=== PATIENT | female | born 1970 | race Caucasian/White ===

== ENCOUNTER 2019-08-07 15:09 | Emergency (ER) | payer BC ==
[2019-08-07] MEDS ORDERED: Sodium Chloride 0.9% 1000 ML 1,000 ML IV STA ×2 (15:28→16:49)
[2019-08-07] MEDS ORDERED: BABY ASPIRIN 81 MG CHEW PO ONE (15:28)
[2019-08-07] MEDS ORDERED: SUBLIMAZE 100 MCG/2 ML IV ONE ×2 (15:28→16:49)
[2019-08-07] MEDS ORDERED: BENADRYL 50 MG/ML IV ONE (15:28)
[2019-08-07] MEDS ORDERED: SUBLIMAZE 100 MCG/2 ML ONE ×2 (15:41→16:58)
[2019-08-07] MEDS ORDERED: BENADRYL 50 MG/ML ONE (15:41)
[2019-08-07] MEDS ORDERED: BABY ASPIRIN 81 MG CHEW ONE (15:41)
[2019-08-07] MEDS ORDERED: Sodium Chloride 0.9% 1000 ML 1,000 ML ONE ×2 (15:42→16:58)
--- NOTE | 2019-08-07 15:42 | ERPHSYRPT ---
- History of Present Illness Time Seen by Provider: 08/07/19 15:20 Historian: patient Exam Limitations: no limitations Patient Subjective Stated Complaint: Pt state "I have migraines and I had one last night and I thought it was just a headache, then my hands and arms started tingling and I got short of breath and now it feels like there is something laying on my chest." Triage Nursing Assessment: Pt presented to the ed and placed in room 7. Pt ambulates with an uprigth steady gait, able to speak in clear full sentences. Pt in no apparent respiratory distress. Physician History: Patient had chest pressure develop at 14:00 on 08/07/2019, 90 minutes prior to coming into the emergency department. Patient had a headache in the morning of 08/07/2019 that was consistent with typical migraines although this one was generalized with a throbbing head pain with nausea and photophobia. Timing/Duration: today Activities at Onset: none Quality: pressure Location: central Chest Pain Radiation: no radiation Severity of Pain-Max: moderate Severity of Pain-Current: moderate Modifying Factors: Improves With: nothing Associated Symptoms: nausea, shortness of breath (occurred before the chest pressure sensation, none currently), headache (headache was first), No vomiting , No palpitations, No heartburn, No abdominal pain, No cough, No hurts to breathe, No diaphoresis, No chills, No fever, No fatigue, No weakness, No swelling/lump in chest, No syncope, No rash, No dizziness, No edema, No back pain Prior Chest Pain/Cardiac Workup: no prior chest pain Nitro Today/Relief: no nitro taken today Aspirin Treatment Today: no aspirin today Allergies/Adverse Reactions: latex Allergy (Severe, Verified 08/07/19 15:33) Swelling morphine Allergy (Severe, Verified 08/07/19 15:33) seizures Home Medications: Amitriptyline HCl 50 mg PO HS 08/07/19 [History] Galcanezumab-Gnlm [Emgality] 120 mg SQ UD 08/07/19 [History] Levothyroxine Sodium [Synthroid] 25 mcg PO DAILY 08/07/19 [History] Metformin HCl 500 mg PO BID 08/07/19 [History] Omeprazole 40 mg PO DAILY 08/07/19 [History] Oxycodone / APAP 10/325 mg [Oxycodone-Acetaminophen 10-325] 1 each PO Q8H PRN PRN 08/07/19 [History] Propranolol HCl [Propranolol HCl ER] 120 mg PO HS 08/07/19 [History] Ranitidine HCl 300 mg PO HS 08/07/19 [History] Rivaroxaban [Xarelto] 20 mg PO HS 08/07/19 [History] Simvastatin 20 mg PO DAILY 08/07/19 [History] Zolpidem Tartrate [Zolpidem Tartrate ER] 12.5 mg PO HS 08/07/19 [History] Hx Tetanus, Diphtheria Vaccination/Date Given: Yes Hx Influenza Vaccination/Date Given: No Hx Pneumococcal Vaccination/Date Given: No Immunizations Up to Date: Yes - Review of Systems Constitutional: No Fever, No Chills Eyes: No Symptoms Ears, Nose, & Throat: No Symptoms Respiratory: No Cough, No Dyspnea Cardiac: No Chest Pain, No Edema, No Syncope Abdominal/Gastrointestinal: No Abdominal Pain, No Nausea, No Vomiting, No Diarrhea, No Hematemesis, No Hematochezia, No Melena Genitourinary Symptoms: No Dysuria, No Hematuria, No Flank Pain Musculoskeletal: No Back Pain, No Neck Pain Skin: No Rash Neurological: Headache, Parasthesia (bilateral upper extremities), No Dizziness , No Focal Weakness, No Paralysis, No Sensory Changes, No Tremors Psychological: No Symptoms Endocrine: No Symptoms Hematologic/Lymphatic: No Easy Bleeding, No Easy Bruising All Other Systems: Reviewed and Negative - Past Medical History Pertinent Past Medical History: Yes Neurological History: Migraines ENT History: No Pertinent History Cardiac History: High Cholesterol, Hypertension Respiratory History: No Pertinent History Endocrine Medical History: Hypothyroidism Musculoskeletal History: Arthritis GI Medical History: No Pertinent History History: No Pertinent History Psycho-Social History: No Pertinent History Female Reproductive Disorders: Endometriosis Other Medical History: factor 5 lieden, protien S - Past Surgical History Past Surgical History: Yes Other Surgical History: bebo. urethral. bilat knee - Social History Smoking Status: Former smoker Exposure to second hand smoke: No Drug Use: none Patient Lives Alone: No - Female History Hx Last Menstrual Period: ablasion Hx Now: No - Nursing Vital Signs Nursing Vital Signs: Initial Vital Signs Temperature 97.8 F 08/07/19 15:13 Pulse Rate 70 08/07/19 15:13 Respiratory Rate 18 08/07/19 15:13 Blood Pressure 125/87 08/07/19 15:13 O2 Sat by Pulse Oximetry 100 08/07/19 15:13 Pain Scale Pain Intensity 4 - Physical Exam General Appearance: no apparent distress, alert Eye Exam: PERRL/EOMI, eyes nml inspection Ears, Nose, Throat Exam: normal ENT inspection, moist mucous membranes Neck Exam: normal inspection, non-tender, supple, full range of motion Respiratory Exam: normal breath sounds, lungs clear, airway intact, No respiratory distress, No diminished breath sounds, No accessory muscle use, No crackles/rales, No rhonchi, No wheezing, No stridor Cardiovascular Exam: regular rate/rhythm, normal heart sounds, capillary refill <2 sec Gastrointestinal/Abdomen Exam: soft, No tenderness, No mass Back Exam: normal inspection, normal range of motion, No CVA tenderness, No vertebral tenderness Extremity Exam: normal inspection, normal range of motion, No calf tenderness, No hiram's sign, No swelling Neurologic Exam: alert, oriented x 3, cooperative, manager e commerce II-XII nml as tested, normal mood/affect, sensation nml, No motor deficits Skin Exam: normal color, warm, dry SpO2 Interpretation: normal SpO2: 100 O2 Delivery: Room Air - Course Nursing assessment & vital signs reviewed: Yes EKG Interpreted by Me: RATE (77), Sinus Rhythm, NORMAL AXIS, NORMAL INTERVALS, NORMAL QRS, NORMAL ST-T - Radiology Exams Chest X-ray Interpretation: Interpreted by me, Reviewed by me, No Pneumonia, No Pneumothorax, Nml Heart Size, No Infiltrates, Nml Mediastinum, Other (confirmed by radiologist) C-Spine X-ray Interpretation: Reviewed by me, Other (per radiologist's interpretation: 4 views of the cervical spine demonstrates cervical lordotic straightening and mild 4/moderate C5-C6 endplate spurring. No other bony, articular, or soft tissue abnormalities.) - CT Exams Head CT Interpretation: Negative, No/Intracranial Hemorrhag, Other (per radiologist' s interpretation: Compared to 01/08/2008 CT of the head: Stable remote right basal ganglia lacunar infarct. No new/acute findings.) Ordered Tests: Active Orders 24 hr Category Date Time Status Receiving Tank Operator STAT Care 08/07/19 15:29 Active EKG-ER Only STAT Care 08/07/19 15:28 Active IV Insertion STAT Care 08/07/19 15:28 Active Pulse Oximetry (ED) STAT Care 08/07/19 15:28 Active CERVICAL SPINE (2 OR 3 VIEW) Stat Exams 08/07/19 15:37 Completed CHEST 1 VIEW (PORTABLE) Stat Exams 08/07/19 15:29 Completed HEAD WITHOUT CONTRAST [CT] Stat Exams 08/07/19 16:49 Taken CBC W DIFF Stat Lab 08/07/19 15:28 Completed CK-Creatinine Phosphokinase Stat Lab 08/07/19 15:28 Completed CMP Stat Lab 08/07/19 15:28 Completed LIPASE Stat Lab 08/07/19 15:28 Completed MAGNESIUM Stat Lab 08/07/19 15:28 Completed NT PRO BNP Stat Lab 08/07/19 15:28 Completed PROTIME WITH INR Stat Lab 08/07/19 15:28 Completed PTT Stat Lab 08/07/19 15:28 Completed TROPONIN Q3H Lab 08/07/19 15:30 Completed TROPONIN Q3H Lab 08/07/19 19:00 Completed TROPONIN Q3H Lab 08/07/19 21:30 Ordered TROPONIN Q3H Lab 08/08/19 00:30 Ordered TROPONIN Q3H Lab 08/08/19 03:30 Ordered Urine Triage Profile Stat Lab 08/07/19 Completed Medication Summary Discontinued Medications Generic Name Dose Route Start Last Admin Trade Name Freq PRN Reason Stop Dose Admin Acetaminophen 975 mg 08/07/19 16:49 08/07/19 17:13 Tylenol 325 Mg PO 08/07/19 16:50 975 mg STAT ONE Administration Acetaminophen Confirm 08/07/19 16:59 Tylenol 325 Mg Administered 08/07/19 17:00 Dose 975 mg .ROUTE .STK-MED ONE Aspirin 324 mg 08/07/19 15:28 08/07/19 15:45 Baby Aspirin 81 Mg Chew PO 08/07/19 15:29 324 mg STAT ONE Administration Aspirin Confirm 08/07/19 15:41 Baby Aspirin 81 Mg Chew Administered 08/07/19 15:42 Dose 324 mg .ROUTE .STK-MED ONE Diphenhydramine HCl 25 mg 08/07/19 15:28 08/07/19 15:45 Benadryl 50 Mg/Ml IV 08/07/19 15:29 25 mg STAT ONE Administration Diphenhydramine HCl Confirm 08/07/19 15:41 Benadryl 50 Mg/Ml Administered 08/07/19 15:42 Dose 50 mg .ROUTE .STK-MED ONE Fentanyl Citrate 50 mcg 08/07/19 15:28 08/07/19 15:45 Sublimaze 100 Mcg/2 Ml IV 08/07/19 15:29 50 mcg STAT ONE Administration Fentanyl Citrate Confirm 08/07/19 15:41 Sublimaze 100 Mcg/2 Ml Administered 08/07/19 15:42 Dose 100 mcg .ROUTE .STK-MED ONE Fentanyl Citrate 50 mcg 08/07/19 16:49 08/07/19 17:13 Sublimaze 100 Mcg/2 Ml IV 08/07/19 16:50 50 mcg STAT ONE Administration Fentanyl Citrate Confirm 08/07/19 16:58 Sublimaze 100 Mcg/2 Ml Administered 08/07/19 16:59 Dose 100 mcg .ROUTE .STK-MED ONE Sodium Chloride 1,000 mls @ 999 mls/hr 08/07/19 15:28 08/07/19 16:47 Sodium Chloride 0.9% 1000 Ml IV 08/07/19 16:28 Infused .Q1H1M STA Infusion Sodium Chloride Confirm 08/07/19 15:42 Sodium Chloride 0.9% 1000 Ml Administered 08/07/19 15:43 Dose 1,000 mls @ ud .ROUTE .STK-MED ONE Sodium Chloride 1,000 mls @ 999 mls/hr 08/07/19 16:49 08/07/19 17:13 Sodium Chloride 0.9% 1000 Ml IV 08/07/19 17:49 999 mls/hr .Q1H1M STA Administration Sodium Chloride Confirm 08/07/19 16:58 Sodium Chloride 0.9% 1000 Ml Administered 08/07/19 16:59 Dose 1,000 mls @ ud .ROUTE .STK-MED ONE Ondansetron HCl 4 mg 08/07/19 16:49 08/07/19 17:12 Zofran 4 Mg/2 Ml Vial IV 08/07/19 16:50 4 mg STAT ONE Administration Ondansetron HCl Confirm 08/07/19 16:59 Zofran 4 Mg/2 Ml Vial Administered 08/07/19 17:00 Dose 4 mg .ROUTE .STK-MED ONE Potassium Chloride 40 meq 08/07/19 16:31 08/07/19 16:45 Klor Con 10 Meq PO 08/07/19 16:32 40 meq STAT ONE Administration Potassium Chloride Confirm 08/07/19 16:43 Klor Con 10 Meq Administered 08/07/19 16:44 Dose 40 meq PO .STK-MED ONE Lab/Rad Data: Laboratory Result Diagrams 08/07/19 15:28 08/07/19 15:28 Laboratory Results 08/07/19 08/07/19 08/07/19 Range/Units Unknown 19:00 15:30 WBC (4.0-10.5) K/mm3 RBC (4.1-5.4) M/mm3 Hgb (12.0-16.0) gm/dl Hct (35-47) % MCV (78-100) fl MCH (26-32) pg MCHC (32-36) g/dl RDW (11.5-14.0) % Plt Count (150-450) K/mm3 MPV (6-9.5) fl Gran % (36.0-66.0) % Eos # (Auto) (0-0.5) Absolute Lymphs (auto) (1.0-4.6) Absolute Monos (auto) (0.0-1.3) Lymphocytes % (24.0-44.0) % Monocytes % (0.0-12.0) % Eosinophils % (0.00-5.0) % Basophils % (0.0-0.4) % Absolute Granulocytes (1.4-6.9) Basophils # (0-0.4) PT (9.95-12.35) SECONDS INR (0.8-3.0) APTT (25.3-37.0) SECONDS Sodium (137-145) mmol/L Potassium (3.5-5.1) mmol/L Chloride (98-107) mmol/L Carbon Dioxide (22-30) mmol/L Anion Gap (5-15) MEQ/L BUN (7-17) mg/dL Creatinine (0.52-1.04) mg/dL Estimated GFR ML/MIN Glucose (74-106) mg/dL Calcium (8.4-10.2) mg/dL Magnesium (1.6-2.3) mg/dL Total Bilirubin (0.2-1.3) mg/dL AST (14-36) U/L ALT (0-35) U/L Alkaline Phosphatase (38-126) U/L Creatine Kinase (30-135) U/L Troponin I < 0.012 < 0.012 (0.000-0.034) ng/mL NT-Pro-B Natriuret Pep (0-450) pg/mL Serum Total Protein (6.3-8.2) g/dL Albumin (3.5-5.0) g/dL Lipase (23-300) U/L Urine Opiates Level NEGATIVE (NEGATIVE) Ur Methadone NEGATIVE (NEGATIVE) Urine Barbiturates NEGATIVE (NEGATIVE) Ur Phencyclidine (PCP) NEGATIVE (NEGATIVE) Urine Amphetamine NEGATIVE (NEGATIVE) U Benzodiazepine Level NEGATIVE (NEGATIVE) Urine Cocaine NEGATIVE (NEGATIVE) Urine Marijuana (THC) NEGATIVE (NEGATIVE) 08/07/19 08/07/19 08/07/19 Range/Units 15:28 15:28 15:28 WBC 6.8 (4.0-10.5) K/mm3 RBC 4.52 (4.1-5.4) M/mm3 Hgb 13.9 (12.0-16.0) gm/dl Hct 42.8 (35-47) % MCV 94.7 (78-100) fl MCH 30.8 (26-32) pg MCHC 32.5 (32-36) g/dl RDW 13.0 (11.5-14.0) % Plt Count 245 (150-450) K/mm3 MPV 9.9 H (6-9.5) fl Gran % 48.4 (36.0-66.0) % Eos # (Auto) 0.24 (0-0.5) Absolute Lymphs (auto) 2.53 (1.0-4.6) Absolute Monos (auto) 0.72 (0.0-1.3) Lymphocytes % 37.2 (24.0-44.0) % Monocytes % 10.6 (0.0-12.0) % Eosinophils % 3.5 (0.00-5.0) % Basophils % 0.3 (0.0-0.4) % Absolute Granulocytes 3.30 (1.4-6.9) Basophils # 0.02 (0-0.4) PT 12.7 H (9.95-12.35) SECONDS INR 1.12 (0.8-3.0) APTT 36.0 (25.3-37.0) SECONDS Sodium 141 (137-145) mmol/L Potassium 3.4 L (3.5-5.1) mmol/L Chloride 101 (98-107) mmol/L Carbon Dioxide 29 (22-30) mmol/L Anion Gap 13.5 (5-15) MEQ/L BUN 16 (7-17) mg/dL Creatinine 0.67 (0.52-1.04) mg/dL Estimated GFR > 60.0 ML/MIN Glucose 93 (74-106) mg/dL Calcium 10.0 (8.4-10.2) mg/dL Magnesium 1.8 (1.6-2.3) mg/dL Total Bilirubin 0.90 (0.2-1.3) mg/dL AST 33 (14-36) U/L ALT 28 (0-35) U/L Alkaline Phosphatase 67 (38-126) U/L Creatine Kinase 97 (30-135) U/L Troponin I (0.000-0.034) ng/mL NT-Pro-B Natriuret Pep 91.8 (0-450) pg/mL Serum Total Protein 7.2 (6.3-8.2) g/dL Albumin 4.0 (3.5-5.0) g/dL Lipase 119 (23-300) U/L Urine Opiates Level (NEGATIVE) Ur Methadone (NEGATIVE) Urine Barbiturates (NEGATIVE) Ur Phencyclidine (PCP) (NEGATIVE) Urine Amphetamine (NEGATIVE) U Benzodiazepine Level (NEGATIVE) Urine Cocaine (NEGATIVE) Urine Marijuana (THC) (NEGATIVE) - Progress Progress: improved, re-examined Air Movement: good Progress Note: 08/07/19 16:48 patient still has headache with no change after IV Fentanyl and Benadryl. Will check CT scan of the Head. 08/07/19 17:04 HEART score: 2; up to 1.7% risk of MACE in the next 30 days, low risk; will repeat troponin, and if negative on second, can discharge home in regards to cardiac and continue evaluation as an outpatient. 08/07/19 18:35 Headache has resolved. Patient has a supple neck. 08/07/19 20:26 HEART score 2 with two negative troponins. Low Probability of MACE and can be continued evaluation as an outpatient. Blood Culture(s) Obtained: No Antibiotics given: No Counseled pt/family regarding: lab results, diagnosis, need for follow-up, rad results - Departure Departure Disposition: Home Clinical Impression: Acute chest pain Migraine headache Qualifiers: Migraine type: unspecified Status migrainosus presence: without status migrainosus Intractability: not intractable Qualified Code(s): G43.909 - Migraine, unspecified, not intractable, without status migrainosus Condition: Good Critical Care Time: No Referrals: ABIGAIL HOLLAND [Primary Care Provider] - 08/08/19 Instructions: Chest Pain (DC), Migraine Headache (DC) Additional Instructions: Follow-up with your doctor in the morning of 08/07/2019. Return immediately to the emergency department if any worse headache, recurrent chest pain, shortness of breath, new fevers, new neck pain or any other concerning signs or symptoms that were not present at today's emergency department visit for immediate reevaluation in the emergency department. Forms: Work/School Release Form
[2019-08-07 16:03] LABS: BASOPHIL % 0.3 % (0.0-0.4); Basophil (Absolute #) 0.02 (0-0.4); Eosinophil % 3.5 % (0.00-5.0); Eosinophil (Absolute #) 0.24 (0-0.5); Granulocytes % 48.4 % (36.0-66.0); Hematocrit 42.8 % (35-47); Hemoglobin 13.9 gm/dl (12.0-16.0); Lymphocyte (Absolute #) 2.53 (1.0-4.6); Lymphocytes % 37.2 % (24.0-44.0); Mean Cell Volume 94.7 fl (78-100); Mean Corpuscular Hemoglobin 30.8 pg (26-32); Mean Corpuscular Hgb Concent. 32.5 g/dl (32-36); Mean Platelet Volume 9.9 fl (6-9.5); Monocyte (Absolute #) 0.72 (0.0-1.3); Monocytes % 10.6 % (0.0-12.0); Platelet Count 245 K/mm3 (150-450); Red Blood Count 4.52 M/mm3 (4.1-5.4); White Blood Count 6.8 K/mm3 (4.0-10.5)
[2019-08-07 16:10] LABS: INR 1.12 (0.8-3.0); PROTIME 12.7 SECONDS (9.95-12.35)
[2019-08-07 16:25] LABS: ALKALINE PHOSPHATASE 67 U/L (38-126); ANION GAP 13.5 MEQ/L (5-15); BLOOD UREA NITROGEN 16 mg/dL (7-17); CHLORIDE 101 mmol/L (98-107); CK-Creatinine Phosphokinase 97 U/L (30-135); Carbon Dioxide 29 mmol/L (22-30); Creatinine 1 0.67 mg/dL (0.52-1.04); Glucose 93 mg/dL (74-106); LIPASE 119 U/L (23-300); MAGNESIUM 1.8 mg/dL (1.6-2.3); NT PRO BNP 91.8 pg/mL (0-450); Potassium 3.4 mmol/L (3.5-5.1); SGOT/AST 33 U/L (14-36); SGPT/ALT 28 U/L (0-35); SODIUM 141 mmol/L (137-145); Total Protein 7.2 g/dL (6.3-8.2)
[2019-08-07] MEDS ORDERED: Klor Con 10 MEQ PO ONE ×2 (16:31→16:43)
--- NOTE | 2019-08-07 16:37 | XRAY ---
Indication: Pain between shoulder blades. Arm numbness. Comparison: November 13, 2018. Portable chest again demonstrates normal heart, lungs, and bony thorax.
--- NOTE | 2019-08-07 16:40 | XRAY ---
Indication: Pain between shoulder blades. Arm numbness. Comparison: None. 4 views of the cervical spine demonstrates cervical lordotic straightening and mild/moderate C5-C6 endplate spurring. No other bony, articular, or soft tissue abnormalities.
[2019-08-07] MEDS ORDERED: TYLENOL 325 MG PO ONE (16:49)
[2019-08-07] MEDS ORDERED: Zofran 4 MG/2 ML VIAL IV ONE (16:49)
[2019-08-07] MEDS ORDERED: TYLENOL 325 MG ONE (16:59)
[2019-08-07] MEDS ORDERED: Zofran 4 MG/2 ML VIAL ONE (16:59)
[2019-08-07 18:12] LABS: Amphetamine,Urine NEGATIVE (NEGATIVE); Barbiturate,Urine NEGATIVE (NEGATIVE); Benzodiazepine,Urine NEGATIVE (NEGATIVE); Cocaine,Urine NEGATIVE (NEGATIVE); Methadone,Urine NEGATIVE (NEGATIVE); Opiate,Urine NEGATIVE (NEGATIVE); PCP,Urine NEGATIVE (NEGATIVE); THC,Urine NEGATIVE (NEGATIVE)
[2019-08-07 20:06] VITALS: BP 120/75
[2019-08-07 20:18] VITALS: PULSE 67
[2019-08-07 20:29] VITALS: O2SAT 100
--- NOTE | 2019-08-08 08:38 | XRAY ---
Indication: Headache. Arm numbness and tingling. Multiple contiguous axial images obtained through the head without contrast. Comparison: January 08, 2008. Ventriculosulcal pattern appears symmetric. Stable remote right basal ganglia lacunar infarct. No acute intracranial hemorrhage, abnormal extra-axial fluid collection, or mass effect. Fourth ventricle is midline without hydrocephalus. Mercedes-white matter differentiation preserved. Bony calvarium intact. Visualized paranasal sinuses and mastoid air cells are clear. Impression: Stable remote right basal ganglia lacunar infarct. No new or acute intracranial abnormalities. CT DI 68.51
== END 2019-08-07 20:36 | disposition home or self-care (01) ==
LOC: ED 15:09
DX: G43.909 Migraine, unspecified, not intractable, without status migrainosus (principal); R07.9 Chest pain, unspecified
CPT/HCPCS: 36000; 36415; 70450; 71045; 72040; 80053; 80307; 82550; 83690; 83735; 83880; 84484; 85025; 85610; 85730; 93005; 93041; 94760; 96360; 96361; 96374; 96375; 96376; 99285; J1200; J2405; J3010; A9270-GY

== ENCOUNTER 2019-09-15 09:32 | Day surgery (SDC) | payer BC ==
[~2019-09-15 09:32] MED LIST: Lactated Ringers 1,000 ML IV ONE; Lactated Ringers 1,000 ML IV SCH
--- NOTE | 2019-09-15 09:32 | HP ---
DATE OF SURGERY: 09/15/2019 HISTORY OF PRESENT ILLNESS: The patient is a 49 year-old with upper esophagus choking worse the last couple of days. No prior upper endoscopy. I recommend upper esophageal evaluation to determine etiology. Mother had some problems apparently. PAST MEDICAL HISTORY: Migraines. Factor V Leiden. Protein-S deficiency. PAST SURGICAL HISTORY: Cholecystectomy. Left knee surgery. MEDICATIONS: Zolpidem, simvastatin, rivaroxaban, propranolol, oxycodone, levothyroxine, amitriptyline, promethazine, ergocalciferol, Emgality, tizanidine, Metformin. ALLERGIES: MORPHINE. LATEX. FAMILY HISTORY: Grandfather with prostate cancer. SOCIAL HISTORY: No smoking or alcohol abuse. REVIEW OF SYSTEMS: Fourteen systems reviewed. No chest pain or palpitations other systems negative or noncontributory as above and per preadmission questionnaire. PHYSICAL EXAMINATION: GENERAL: No acute distress. HEENT: Sclerae nonicteric. NECK: No JVD. CHEST: Equal excursion, nonlabored breathing. CVS: Regular rate and rhythm. ABDOMEN: Soft. No peritoneal signs. EXTREMITIES: No significant edema. NEURO: Alert, oriented, moving extremities symmetrically. No gross motor deficits noted. IMPRESSION: Dysphagia upper esophagus unclear etiology. I feel she will benefit from upper endoscopy possible biopsy, possible dilatation. Risks and benefits explained in detail including but not limited to bleeding or infection, risk of bowel injury or perforation possibly requiring open procedure, risk of missed or nondiagnosis or incomplete exam possibly requiring barium swallow, other studies or procedures. Possibility that dilatation may not improve her swallowing upper esophagus, if she has normal function may be neurological issue rather than mechanical. She understands if dilatation does improve her symptoms it may need to be repeated again down the road. General risk of anesthesia, deep venous thrombosis, pulmonary embolism, pneumonia, along with morbidity or mortality but not limited to. General risk of anesthesia or sedation. She understands and agrees to the planned procedure and will proceed with EGD possible biopsy, possible dilatation as an outpatient.
[2019-09-15] MEDS: Versed 2 MG/2 ML Injection IV ONE ×2 (10:31→10:52)
[2019-09-15] MEDS ORDERED: Ketamine HCl 50 MG/ML ONE (10:57)
[2019-09-15] MEDS ORDERED: DIPRIVAN 200 MG/20 ML IV ONE ×2 (10:57→11:11)
[2019-09-15] MEDS ORDERED: Zofran 4 MG/2 ML VIAL ONE (11:36)
[2019-09-15 12:43] VITALS: O2SAT 99
[2019-09-15 12:46] VITALS: BP 107/73; PULSE 71
--- NOTE | 2019-09-15 13:29 | OP ---
SURGERY DATE/TIME: 09/15/2019 1105 PREOPERATIVE DIAGNOSIS: Dysphagia. POSTOPERATIVE DIAGNOSES: 1) Mild gastritis. 2) Gastric polyps. 3) Symptomatic proximal esophageal narrowing and spasm requiring dilatation. PROCEDURES: 1) EGD with cold biopsy of the antrum to evaluate for Helicobacter pylori. 2) Cold biopsy of gastric polyp. 3) Cold biopsy distal esophagus area very short segment of distal gastroesophagitis versus normal variation of gastroesophageal junction. 4) Random cold biopsies of esophagus to evaluate for eosinophilic esophagitis. 5) Esophageal balloon dilatation proximal esophageal narrowing and spasm (size 20 balloon dilatator). SURGEON: Dr. Benjy Hernández. ANESTHESIA: MAC. ESTIMATED BLOOD LOSS: Minimal. INDICATIONS: As noted above. Risks and benefits explained in detail and not limited to and consent obtained. DESCRIPTION OF PROCEDURE AND FINDINGS: The patient is taken to the operating room. MAC anesthesia introduced. After official time out and no disagreement with planned procedure, bite block positioned. Video gastroscope passed down the oropharynx. There was some spasm and narrowing of proximal esophageal area where she is having symptoms. The scope was able to be just passed through here but it was felt that she would benefit from dilatation in this area given her degree of symptoms. There were no signs of any obvious mass or lesion to biopsy in this area, just narrowing and spasm. The scope was able to be passed down through the gastroesophageal junction, through the patent pylorus to the junction of the second and third portion of the duodenum. Proximal duodenum and duodenal bulb were grossly unremarkable. No signs of any ulcers or lesions. Scope pulled in the stomach. She had some mild gastritis. Cold biopsy taken to evaluate for Helicobacter pylori. Otherwise a little further back in the body of the stomach she had some gastric fundal gland appearing polyps. Cold biopsy taken for further evaluation. On retroflex the gastroesophageal junction is fairly snug against the scope. No signs of any large hiatal hernia. Scope is straightened. Gastroesophageal junction about 40 cm. Z-line was fairly crisp, maybe a little roughened edge. Cold biopsy taken to evaluate for short segment distal gastroesophagitis versus reactive changes versus normal variation of gastroesophageal junction, path pending. Good hemostasis noted. Otherwise she did have a little bit of saw tooth ridges and peristalsis, some cold biopsies taken to evaluate for eosinophilic esophagitis. Otherwise there were no signs of any obvious mucosal lesions. On withdrawal of the scope up to the symptomatic proximal esophageal narrowing. It was felt this warranted dilatation. The scope passed back down the stomach. A 20 balloon catheter carefully inserted under direct vision and pulled back up to the narrowed area and proximal esophagus gradually inflated for first stage 45 seconds, second stage 45 seconds and final stage size 20 balloon dilator was left inflated for a couple of minutes and decompressed. Patient was doing a little coughing during this time. The balloon catheter is carefully removed. The scope much more easily passed through this area down in the stomach and carefully withdrawn. Good hemostasis noted. Other than superficial abrasion in the dilated area there was no evidence of any full thickness issues or injury. The scope is withdrawn. The patient tolerated the procedure well. Findings discussed with the family out in the waiting area. Should she have recurrent symptoms or this fails to improve her swallowing could consider esophagogram or consider using larger dilator, a more stiffer and hard dilator. I will see her back in the office next week to go over the results.
== END 2019-09-15 12:51 | disposition home or self-care (01) ==
LOC: SDC 09:32
PROVIDERS: ATTEND Surgery
DX: K22.2 Esophageal obstruction (principal); K22.4 Dyskinesia of esophagus; K29.70 Gastritis, unspecified, without bleeding; K31.7 Polyp of stomach and duodenum
CPT/HCPCS: 84703; C1726; J2250; J2405; J2704

== ENCOUNTER 2019-12-08 14:16 | Emergency (ER) | payer BC ==
--- NOTE | 2019-12-08 14:21 | ERPHSYRPT ---
- History of Present Illness Time Seen by Provider: 12/08/19 14:20 Source: patient Exam Limitations: no limitations Physician History: 49 y/o white female exposed a month ago to her daughter who lives [place] of [facility]. no direct exposure to anyone with coronavirus dx. daughter was visiting and had flu like sx but sx resolved. pt was tested for influenza a and b last week and it was negative. pt was started on tamiflu. pt sx have been improving. however, family and friends convinced her pt should be evaluated. pt is on chronic oxycodone. pt sx include cough. no fevers, no n/v/d. Timing/Duration: week(s) (2) Cough Quality/Degree: mild, dry cough Possible Cause: no prior episodes Associated Symptoms: cough Allergies/Adverse Reactions: latex Allergy (Severe, Verified 12/08/19 14:32) Swelling morphine Allergy (Severe, Verified 12/08/19 14:32) seizures Home Medications: Metformin HCl 500 mg PO BID 08/07/19 [History] Omeprazole 40 mg PO DAILY 08/07/19 [History] Oxycodone / APAP 10/325 mg [Oxycodone-Acetaminophen 10-325] 1 each PO Q8H PRN PRN 08/07/19 [History] Rivaroxaban [Xarelto] 20 mg PO HS 08/07/19 [History] Simvastatin 20 mg PO DAILY 08/07/19 [History] Zolpidem Tartrate [Zolpidem Tartrate ER] 12.5 mg PO HS 08/07/19 [History] Ergocalciferol (Vitamin D2) [Vitamin D2] 50,000 unit PO WEEKLY 09/09/19 [History ] Promethazine HCl 25 mg [Phenergan 25 mg] 25 mg PO DAILY 09/09/19 [History] Tizanidine HCl 4 mg [Zanaflex 4 MG] 4 mg PO DAILY 09/09/19 [History] AMITRIPTYLINE HCL 50 mg Tab [AMITRIPTYLINE HCL 50 mg Tablet] 1 ea DAILY [History] Hx Tetanus, Diphtheria Vaccination/Date Given: Yes Hx Influenza Vaccination/Date Given: No Hx Pneumococcal Vaccination/Date Given: No - Review of Systems Constitutional: No Symptoms Eyes: No Symptoms Ears, Nose, & Throat: No Symptoms Respiratory: Cough Cardiac: No Symptoms Abdominal/Gastrointestinal: No Symptoms Genitourinary Symptoms: No Symptoms Musculoskeletal: No Symptoms Skin: No Symptoms Neurological: No Symptoms Psychological: No Symptoms Endocrine: No Symptoms Hematologic/Lymphatic: No Symptoms Immunological/Allergic: No Symptoms All Other Systems: Reviewed and Negative - Past Medical History Pertinent Past Medical History: Yes Neurological History: Migraines ENT History: No Pertinent History Cardiac History: Deep Vein Thrombosis, High Cholesterol, Hypertension Respiratory History: No Pertinent History Endocrine Medical History: Hypothyroidism Musculoskeletal History: Arthritis GI Medical History: No Pertinent History History: No Pertinent History Psycho-Social History: No Pertinent History Female Reproductive Disorders: Endometriosis Other Medical History: factor 5 lieden, protien S - Past Surgical History Past Surgical History: Yes Neuro Surgical History: No Pertinent History Cardiac: No Pertinent History Respiratory: No Pertinent History Gastrointestinal: Cholecystectomy Genitourinary: Other Musculoskeletal: Orthopedic Surgery Female Surgical History: Other Other Surgical History: bebo. urethral - expansion. bilat knee-endo w/ meniscus removed left, repair right. uterine ablation. endometriosis removal twice - Social History Smoking Status: Former smoker Exposure to second hand smoke: No Drug Use: none Patient Lives Alone: No - Nursing Vital Signs Nursing Vital Signs: Initial Vital Signs Temperature 98.6 F 12/08/19 14:22 Pulse Rate 75 12/08/19 14:22 Respiratory Rate 18 12/08/19 14:22 Blood Pressure 131/89 12/08/19 14:22 O2 Sat by Pulse Oximetry 99 12/08/19 14:22 Pain Scale Pain Intensity 4 - Physical Exam General Appearance: no apparent distress, alert, anxiety Eye Exam: PERRL/EOMI, eyes nml inspection Ears, Nose, Throat Exam: normal ENT inspection, moist mucous membranes Neck Exam: normal inspection, non-tender, supple, full range of motion Respiratory Exam: normal breath sounds, lungs clear, airway intact, No chest tenderness, No respiratory distress Cardiovascular Exam: regular rate/rhythm, normal heart sounds, normal peripheral pulses Gastrointestinal/Abdomen Exam: soft, normal bowel sounds, No tenderness Pelvic Exam: not done Rectal Exam: not done Back Exam: normal inspection, No CVA tenderness, No vertebral tenderness Extremity Exam: normal inspection, normal range of motion, pelvis stable Neurologic Exam: alert, oriented x 3, cooperative, striker off II-XII nml as tested Skin Exam: normal color, warm, dry Lymphatic Exam: No adenopathy SpO2 Interpretation: normal O2 Delivery: Room Air - Course Nursing assessment & vital signs reviewed: Yes Ordered Tests: Active Orders 24 hr Category Date Time Status CHEST 1 VIEW (PORTABLE) Stat Exams 12/08/19 14:32 Completed BLOOD CULTURE Stat Lab 12/08/19 14:52 Received [place] Screen Stat Lab 12/08/19 14:52 Completed UA W/RFX UR CULTURE Stat Lab 12/08/19 14:43 Completed Medication Summary Discontinued Medications Generic Name Dose Route Start Last Admin Trade Name Mak PRN Reason Stop Dose Admin Acetaminophen 1,000 mg 12/08/19 15:52 12/08/19 15:54 Tylenol Extra Strength 500 Mg PO 12/08/19 15:53 1,000 mg STAT STA Administration Acetaminophen Confirm 12/08/19 15:53 Tylenol Extra Strength 500 Mg Administered 12/08/19 15:54 Dose 1,000 mg .ROUTE .[employer] Lab/Rad Data: Laboratory Results 12/08/19 12/08/19 12/08/19 Range/Units 14:52 14:52 14:43 Urine Color STRAW (YELLOW) Urine Appearance CLEAR (CLEAR) Urine pH 6.0 (5-6) Ur Specific [place] 1.005 (1.005-1.025) Urine Protein NEGATIVE (Negative) Urine Ketones NEGATIVE (NEGATIVE) Urine Blood NEGATIVE (0-5) Moisés/ul Urine Nitrite NEGATIVE (NEGATIVE) Urine Bilirubin NEGATIVE (NEGATIVE) Urine Urobilinogen NEGATIVE (0-1) mg/dL Ur Leukocyte Esterase NEGATIVE (NEGATIVE) Urine WBC (Auto) 0-2 (0-5) /HPF Urine RBC (Auto) NONE (0-2) /HPF U Epithel Cells (Auto) RARE (FEW) /HPF Urine Bacteria (Auto) RARE (NEGATIVE) /HPF Urine Culture Reflexed NO (NO) Urine Glucose NEGATIVE (NEGATIVE) mg/dL Monoscreen NEGATIVE (Negative) Influenza Type A Ag NEGATIVE (NEGATIVE) Influenza Type B Ag NEGATIVE (NEGATIVE) RSV (PCR) NEGATIVE (Negative) Group A Strep Antibody NEGATIVE (NEGATIVE) - Progress Progress: improved Air Movement: good Progress Note: 12/08/19 15:21 [facility] contacted. they recommend no work up for ruby virus necessary. pt is very low risk. they will not authorize receipt of any lab , sputum, etc. 12/08/19 15:23 cxr-no acute process Blood Culture(s) Obtained: Yes Antibiotics given: No Counseled pt/family regarding: lab results, diagnosis, need for follow-up, rad results - Departure Departure Disposition: Home Clinical Impression: Bronchitis Condition: Stable Critical Care Time: No Referrals: ABIGAIL HOLLAND [Primary Care Provider] - Additional Instructions: drink plenty of fluids. take medications as prescribed. monitor your blood glucose closely next few days and treat accordingly Prescriptions: Benzonatate [Tessalon Perle] 200 mg PO TID #12 capsule Prednisone 10 mg [Deltasone 10 mg] 10 mg PO TID #6 tablet
--- NOTE | 2019-12-08 15:08 | XRAY ---
Indication: Fever and congestion. Comparison: August 07, 2019. Portable chest again demonstrates normal heart, lungs, and bony thorax.
[2019-12-08 15:09] LABS: Appearance CLEAR (CLEAR); Bacteria RARE /HPF (NEGATIVE); Bilirubin NEGATIVE (NEGATIVE); Blood NEGATIVE Ery/ul (0-5); Epithelial Cells RARE /HPF (FEW); Glucose NEGATIVE (NEGATIVE); Ketones NEGATIVE (NEGATIVE); Leukocyte Esterase NEGATIVE (NEGATIVE); Nitrite NEGATIVE (NEGATIVE); Protein,Urine Dip NEGATIVE (Negative); Specific Gravity 1.005 (1.005-1.025); Urobilinogen NEGATIVE mg/dL (0-1); WBC 0-2 /HPF (0-5)
[2019-12-08] MEDS ORDERED: TYLENOL EXTRA STRENGTH 500 MG PO STA (15:52)
[2019-12-08] MEDS ORDERED: TYLENOL EXTRA STRENGTH 500 MG ONE (15:53)
[2019-12-08 15:55] LABS: INFLUENZA A NEGATIVE (NEGATIVE); INFLUENZA B NEGATIVE (NEGATIVE); RESPIRATORY SYNCTIAL VIRUS NEGATIVE (Negative)
[2019-12-08 16:36] VITALS: BP 128/66; PULSE 87; O2SAT 98
== END 2019-12-08 16:37 | disposition home or self-care (01) ==
LOC: ED 14:16
DX: J40 Bronchitis, not specified as acute or chronic (principal)
CPT/HCPCS: 36415; 71045; 81001; 86308; 87040; 87631; 87651; 99284; A9270-GY

== ENCOUNTER 2020-05-28 10:06 | Emergency (ER) | payer BC ==
--- NOTE | 2020-05-28 10:44 | ERPHSYRPT ---
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 -Patient denies any trauma/fall -States that about a week ago her entire left lower extremity was swollen and painful, she did not have any fever/chest pain shortness of breath//red streaks on her legs -states that around last night the swelling went down, states she has some residual swelling in her calf systems and left lower extremity pain which is about4-5/10, intermittent dull ache which increases with ambulation, decreases with rest and elevation of legs, associated with swelling of legs. -Patient reports that last night for a few seconds she felt a sharp pain below her left shoulder blade, has not had a recurrence of that pain -Continues to deny chest pain or shortness of breath -Is currently on Xarelto-states she has been on it for several years Allergies/Adverse Reactions: latex Allergy (Severe, Verified 05/28/20 10:27) Swelling morphine Allergy (Severe, Verified 05/28/20 10:27) seizures Home Medications: Metformin HCl 500 mg PO BID 08/07/19 [History] Omeprazole 40 mg PO DAILY 08/07/19 [History] Oxycodone / APAP 10/325 mg [Oxycodone-Acetaminophen 10-325] 1 each PO Q8H PRN PRN 08/07/19 [History] Rivaroxaban [Xarelto] 20 mg PO HS 08/07/19 [History] Simvastatin 20 mg PO DAILY 08/07/19 [History] Zolpidem Tartrate [Zolpidem Tartrate ER] 12.5 mg PO HS 08/07/19 [History] Ergocalciferol (Vitamin D2) [Vitamin D2] 50,000 unit PO WEEKLY 09/09/19 [History] Promethazine HCl 25 mg [Phenergan 25 mg] 25 mg PO DAILY PRN PRN 09/09/19 [History] AMITRIPTYLINE HCL 50 mg Tab [AMITRIPTYLINE HCL 50 mg Tablet] 1 ea PO DAILY 12/08/19 [History] Prednisone 10 mg [Deltasone 10 mg] 10 mg PO TID PRN 05/28/20 [History] Hx Tetanus, Diphtheria Vaccination/Date Given: Yes Hx Influenza Vaccination/Date Given: No Hx Pneumococcal Vaccination/Date Given: No - Review of Systems Constitutional: No Fever, No Chills, No Fatigue, No Weakness Eyes: No Symptoms Ears, Nose, & Throat: No Symptoms Respiratory: No Symptoms Cardiac: No Symptoms Abdominal/Gastrointestinal: No Symptoms Genitourinary Symptoms: No Symptoms Musculoskeletal: Other (left LE pain) Skin: No Symptoms Neurological: No Symptoms Psychological: No Symptoms Endocrine: No Symptoms Hematologic/Lymphatic: No Symptoms Immunological/Allergic: No Symptoms All Other Systems: Reviewed and Negative - Past Medical History Pertinent Past Medical History: Yes Neurological History: Migraines ENT History: No Pertinent History Cardiac History: Deep Vein Thrombosis, High Cholesterol, Hypertension Respiratory History: No Pertinent History Endocrine Medical History: Hypothyroidism Musculoskeletal History: Arthritis GI Medical History: No Pertinent History History: No Pertinent History Psycho-Social History: No Pertinent History Female Reproductive Disorders: Endometriosis Other Medical History: factor 5 lieden, protien S - Past Surgical History Past Surgical History: Yes Neuro Surgical History: No Pertinent History Cardiac: No Pertinent History Respiratory: No Pertinent History Gastrointestinal: Cholecystectomy Genitourinary: Other Musculoskeletal: Orthopedic Surgery Female Surgical History: Other Other Surgical History: bebo. urethral - expansion. bilat knee-endo w/ meniscus removed left, repair right. uterine ablation. endometriosis removal twice - Social History Smoking Status: Former smoker Exposure to second hand smoke: No Drug Use: none Patient Lives Alone: No - Nursing Vital Signs Nursing Vital Signs: Initial Vital Signs Temperature 98.3 F 05/28/20 10:32 Pulse Rate 72 05/28/20 10:32 Respiratory Rate 18 05/28/20 10:32 Blood Pressure 119/73 05/28/20 10:32 O2 Sat by Pulse Oximetry 98 05/28/20 10:32 Pain Scale Pain Intensity 5 - Physical Exam General Appearance: no apparent distress Eyes, Ears, Nose, Throat Exam: normal ENT inspection Neck Exam: normal inspection Cardiovascular/Respiratory Exam: chest non-tender, normal breath sounds, regular rate/rhythm, heart sounds normal Gastrointestinal/Abdominal Exam: non-tender, soft, no organomegaly Back Exam: normal inspection, normal range of motion, No CVA tenderness Hips Exam: bilateral: non-tender, normal inspection, normal range of motion, no evidence of injury Legs Exam: right leg: non-tender, normal inspection (left LE has+ varicose veins, calf tenderness), left leg: pain (left calf pain), swelling (calf swelling), bilateral leg: normal range of motion, no evidence of injury Knees Exam: bilateral knee: non-tender, normal inspection, normal range of motion, no evidence of injury Ankle Exam: bilateral ankle: non-tender, normal inspection, normal range of jose on, no evidence of injury Foot Exam: bilateral foot: non-tender, normal inspection, normal range of motion, no evidence of injury DTR - Lower Extremities Exam: knee (R): 4+, knee (L): 4+, ankle (R): 4+, ankle (L): 4+ Neuro/Tendon Exam: normal sensation, normal motor functions, normal tendon functions, responds to pain, No motor deficit, No sensory deficit Mental Status Exam: alert, oriented x 3, cooperative Skin Exam: normal color, warm SpO2 Interpretation: normal O2 Delivery: Room Air Ordered Tests: Active Orders 24 hr Category Date Time Status Ultrasound Unilateral Extremities [VENOUS UNILAT/ Exams 05/28/20 11:03 Completed LIMITED EXTREMIT] [US] Stat D-DIMER QUANTITATIVE Stat Lab 05/28/20 10:38 Completed Lab/Rad Data: Laboratory Results 05/28/20 Range/Units 10:38 D-Dimer 229 (215-500) ng/mL - Progress Progress Note: 05/28/20 10:47 Is a 49-year-old patient with known history of DVT, history of factor V Leyden deficiency, protein s deficiency, currently on Xarelto presenting to the ED for evaluation of left lower extremity swelling and pain for the past 1 week. The swelling and pain has decreased last night -He was seen and evaluated in ED room 6 -Vital signs are stable on arrival -Bedside lower extremity ultrasound has been ordered -D-dimer pending 05/28/20 11:21 Lower extremity ultrasound with negative for DVT 05/28/20 12:02 D-dimer- WNL Discussed findings with patient - she is on xeralto- advised to continue - Advised limb elevation, rest, cold /warm compresses as needed. tylenol as needed for pain and f/u with pcp per appointment on sunday06/01/2020 - return to ED for new or worsening symptoms - Departure Departure Disposition: Home Clinical Impression: Leg pain, Left leg swelling Condition: Stable Critical Care Time: No Referrals: ABIGAIL HOLLAND [Primary Care Provider] - Additional Instructions: Discharge/Care Plan MINI RAJAN was seen on 05/28/20 in the Emergency Room. The patient was counseled regarding Diagnosis,Lab results, Imaging studies, need for follow up and when to return to the Emergency Room. Prescriptions given: Discharge Note I have spoken with the patient and/or caregivers. I have explained the patient's condition, diagnosis and treatment plan based on the information available to me at this time. I have answered the patient's and/or caregiver's questions and addressed any concerns. The patient and/or caregivers have as good understanding of the patient's diagnosis, condition and treatment plan as can be expected at this point. The vital signs have been stable. The patient's condition is stable and appropriate for discharge from the emergency department. The patient will pursue further outpatient evaluation with the primary care physician or other designated or consulting physician as outlined in the discharge instructions. The patient and/or caregivers are agreeable to this plan of care and follow-up instructions have been explained in detail. The patient and/or caregivers have received these instruction. The patient/and or caregivers are aware that any significant change in condition or worsening of symptoms should prompt an immediate return to this or the closest emergency department or call 911.
--- NOTE | 2020-05-28 11:18 | XRAY ---
Indication: Left calf pain. Two-dimensional sonogram and color Doppler imaging of the major venous vessels of the left leg was performed. Comparison: None No thrombus seen in the examined deep venous vessels of the left leg including greater saphenous vein. Veins demonstrate normal compressibility. Venous waveforms are normal with and without augmentation. Impression: Left leg negative for DVT.
[2020-05-28 11:47] VITALS: BP 92/57; PULSE 62; O2SAT 94
== END 2020-05-28 12:14 | disposition home or self-care (01) ==
LOC: ED 10:06
DX: M79.662 Pain in left lower leg (principal); M79.89 Other specified soft tissue disorders; Z86.718 Personal history of other venous thrombosis and embolism; Z79.899 Other long term (current) drug therapy; E78.00 Pure hypercholesterolemia, unspecified; I10 Essential (primary) hypertension; Z79.01 Long term (current) use of anticoagulants; D68.2 Hereditary deficiency of other clotting factors
CPT/HCPCS: 36415; 85379; 93971; 99283

== ENCOUNTER 2020-08-09 08:18 | Day surgery (SDC) | payer BC ==
--- NOTE | 2020-08-09 07:49 | HP ---
DATE OF SURGERY: 08/09/2020 HISTORY OF PRESENT ILLNESS: The patient is a 50 year old over the left neck area feels like solids get stuck. No problem with liquids. Prior dilatation a year ago helped. Minimal dysphagia. I felt she would benefit from upper endoscopy possible dilatation. PAST MEDICAL HISTORY: Hypothyroidism. Reflux. Hyperlipidemia. Diabetes. Hypertension. PAST SURGICAL HISTORY: Cholecystectomy. Endoscopy in the past with dilatation. Left knee surgery in the past. MEDICATIONS: Vitamin D2, Percocet, levothyroxine, hydrochlorothiazide, Metformin, omeprazole, Simvastatin, ALLERGIES: MORPHINE. LATEX. FAMILY HISTORY: Diabetes, stroke, heart disease, prostate cancer. SOCIAL HISTORY: Denies smoking. REVIEW OF SYSTEMS: Fourteen systems reviewed. Negative or noncontributory as above and per preadmission questionnaire. PHYSICAL EXAMINATION: GENERAL: No acute distress. HEENT: Sclerae nonicteric. NECK: No JVD. CHEST: Equal excursion, nonlabored breathing. CVS: Regular rate and rhythm. ABDOMEN: Soft. No peritoneal signs. EXTREMITIES: No significant edema. NEURO: Alert, oriented, moving extremities symmetrically. No gross motor deficits noted. PSYCH: Appropriate mood and affect. IMPRESSION: Dysphagia, need for EGD possible biopsy, possible dilatation. Risks and benefits explained in detail including but not limited to bleeding or infection, risk of bowel injury or perforation possibly requiring open procedure, risk of missed or nondiagnosis or incomplete exam possibly requiring barium swallow, other studies or procedures. General risk of anesthesia or sedation, risk of perforation possibly requiring open procedure, risk of ongoing morbidity/mortality, possibility that dilatation may not improve the swallowing, may be more of a functional problem or neurological problem. General risk of anesthesia, deep venous thrombosis, pulmonary embolism, pneumonia but not limited to. She agrees to the planned procedure, will proceed with EGD possible biopsy, possible dilatation as an outpatient.
[~2020-08-09 08:18] MED LIST changes: +DIPRIVAN 200 MG/20 ML IV ONE; +Ketamine HCl 50 MG/ML ONE; -Lactated Ringers 1,000 ML IV ONE; -Lactated Ringers 1,000 ML IV SCH
[2020-08-09] MEDS ORDERED: Lactated Ringers 1,000 ML IV SCH (08:30)
[2020-08-09] MEDS ORDERED: Lactated Ringers 1,000 ML IV ONE (09:05)
[2020-08-09] MEDS ORDERED: Versed 2 MG/2 ML Injection ONE (09:22)
[2020-08-09] MEDS ORDERED: Versed 2 MG/2 ML Injection IV ONE (09:23)
[2020-08-09] MEDS ORDERED: Zofran 4 MG/2 ML VIAL ONE (10:56)
[2020-08-09 12:03] VITALS: O2SAT 99
[2020-08-09 12:12] VITALS: BP 125/79; PULSE 67
--- NOTE | 2020-08-09 15:05 | OP ---
SURGERY DATE/TIME: 08/09/2020 1027 PREOPERATIVE DIAGNOSIS: Dysphagia. POSTOPERATIVE DIAGNOSES: 1) Minimal to mild gastritis. 2) Gastric polyp. 3) Mild distal esophageal erythema possible early esophagitis, path pending. 4) Proximal esophageal narrowing and spasm requiring dilatation, asymptomatic. PROCEDURES: 1) EGD with cold biopsy of antrum to evaluate for Helicobacter pylori. 2) Cold biopsy gastric polyp. 3) Cold biopsy distal esophagus to evaluate early esophagitis. 4) Proximal esophageal dilatation size 20 balloon dilator. SURGEON: Dr. Benjy Hernández. ANESTHESIA: MAC. ESTIMATED BLOOD LOSS: Minimal. INDICATIONS: As noted above. Risks and benefits explained in detail and not limited to and consent obtained. DESCRIPTION OF PROCEDURE AND FINDINGS: The patient is taken to the endoscopy room. MAC anesthesia introduced. After official time out and no disagreement with planned procedure, a bite block positioned. Video gastroscope passed down the oropharynx. The proximal esophagus had some narrowing and spasm. There was no obvious mass or lesion to biopsy in this area but she is having symptoms here. However, the scope could just pass through the area. It was felt she would benefit from a trial of dilatation given her symptoms in this area. The scope was passed down through the gastroesophageal junction about 38 cm through the patent pylorus to the junction of the second and third portion of the duodenum. In the third, second and first portion of the duodenum grossly unremarkable. In the stomach she had some mild gastric erythema consistent with some minimal to mild gastritis. Cold biopsy taken to evaluate for CLOtest, Helicobacter pylori. Good hemostasis noted. On retroflex there was gastric polyp. Cold biopsy polypectomy. Good hemostasis noted. This had more appearance of a benign fundal gland polyp, biopsy is taken. Good hemostasis noted. Gastroesophageal junction snug. No signs of any hiatal hernia. Scope straightened. Gastroesophageal junction about 38 cm. Z-line was fairly crisp. There was a little bit of erythematous esophagus. Cold biopsy taken to evaluate for early esophagitis and to evaluate for eosinophilic early esophagitis. Good hemostasis noted. Otherwise there were no signs of any obvious mucosal lesions on withdrawal of the scope up to the narrowed area in proximal esophagus. Again, there is no evidence of any mass or lesion to biopsy in this area. It was felt would benefit from dilatation given her symptoms. Scope passed back down. 20 balloon dilator carefully inserted, pulled back up through proximal esophageal narrowed and spasm area. It is carefully inflated first stage for 45 seconds, second stage 45 seconds and final stage size 20 balloon dilator for 2 minutes. The patient did a lot of coughing during this but the balloon was able to be inflated and left in position. The proximal esophagus appeared to be more widely patent and the balloon catheter withdrawn and passed off. The scope is passed back down through here. The proximal esophagus appeared to be more widely patent post-dilatation. It appeared to have no evidence of any full thickness issues or injury secondary to dilatation. The scope is passed back down in the stomach. Appeared to have good hemostasis in the polyp and gastric biopsy site. The scope is withdrawn. The patient tolerated the procedure well. There were no immediate complications. Findings discussed with the family/friend out in the waiting area.
== END 2020-08-09 11:55 | disposition home or self-care (01) ==
LOC: SDC 08:18
PROVIDERS: ATTEND Surgery
DX: K29.00 Acute gastritis without bleeding (principal); K22.2 Esophageal obstruction; K31.7 Polyp of stomach and duodenum; K20.9 Esophagitis, unspecified; K22.4 Dyskinesia of esophagus; E11.9 Type 2 diabetes mellitus without complications; E03.9 Hypothyroidism, unspecified; E78.5 Hyperlipidemia, unspecified; I10 Essential (primary) hypertension; Z79.899 Other long term (current) drug therapy
CPT/HCPCS: 82962; 87081; 88305; 88342; J2250; J2405; J2704

== ENCOUNTER 2021-08-17 19:56 | Emergency (ER) | payer BC ==
--- NOTE | 2021-08-17 20:05 | ERPHSYRPT ---
- History of Present Illness Time Seen by Provider: 08/17/21 20:05 Source: patient Exam Limitations: no limitations Physician History: This is a 51-year-old white female patient of Dr. Blair Brown who was tested positive for COVID-19 infection a month ago. Ever since that time, the patient has felt very poorly. She feels weak. [facility] she had a potassium level earlier today of 2.4. Patient has been on a diuretic for short period of time but was not placed on potassium supplementation. Patient denies diarrhea. She denies vomiting. She does have a history of protein S deficiency and factor V Leiden and is taking Xarelto because of this and history of DVTs. Patient also has a history of elevated cholesterol and hypertension. Patient also has a history of COPD. She is also hypothyroid. Severity: mild Associated Symptoms: weakness Allergies/Adverse Reactions: latex Allergy (Severe, Verified 08/17/21 20:16) Swelling morphine Allergy (Severe, Verified 08/17/21 20:16) seizures Home Medications: Omeprazole 40 mg PO DAILY 08/07/19 [History] Oxycodone / APAP 10/325 mg [Oxycodone-Acetaminophen 10-325] 1 each PO Q8H PRN PRN 08/07/19 [History] Simvastatin 20 mg PO DAILY 08/07/19 [History] Zolpidem Tartrate [Zolpidem Tartrate ER] 12.5 mg PO HS 08/07/19 [History] Ergocalciferol (Vitamin D2) [Vitamin D2] 50,000 unit PO WEEKLY 09/09/19 [History] Levothyroxine Sodium 50 Mcg [Synthroid 50 Mcg] 75 mcg PO DAILY 07/26/20 [History] Propranolol HCl [Propranolol HCl ER] 120 mg PO HS 07/26/20 [History] ondansetron HCL [Zofran] 8 mg PO DAILY 07/26/20 [History] Montelukast Sodium 10 mg [Singulair 10 MG] 10 mg PO DAILY 04/20/21 [History] Fluoxetine HCl 10 mg [Prozac 10 mg] 10 mg PO DAILY 06/02/21 [History] Hx Tetanus, Diphtheria Vaccination/Date Given: Yes Hx Influenza Vaccination/Date Given: No Hx Pneumococcal Vaccination/Date Given: No Travel Risk - International Travel Have you traveled outside of the country in past 3 weeks: No - Coronavirus Screening Are you exhibiting any of the following symptoms?: No Close contact with a COVID-19 positive Pt in past 14-21 Days: No - Review of Systems Constitutional: Weakness Eyes: No Symptoms Ears, Nose, & Throat: No Symptoms Respiratory: No Symptoms Cardiac: No Symptoms Abdominal/Gastrointestinal: No Symptoms Genitourinary Symptoms: No Symptoms Musculoskeletal: No Symptoms Skin: No Symptoms Neurological: No Symptoms Psychological: No Symptoms Endocrine: No Symptoms Hematologic/Lymphatic: No Symptoms Immunological/Allergic: No Symptoms All Other Systems: Reviewed and Negative - Past Medical History Pertinent Past Medical History: Yes Neurological History: Migraines ENT History: No Pertinent History Cardiac History: Deep Vein Thrombosis, High Cholesterol, Hypertension Respiratory History: COPD, Sleep Apnea Endocrine Medical History: Hypothyroidism Musculoskeletal History: Arthritis GI Medical History: No Pertinent History History: No Pertinent History Psycho-Social History: No Pertinent History Female Reproductive Disorders: Endometriosis Other Medical History: factor 5 lieden, protien S - Past Surgical History Past Surgical History: Yes Neuro Surgical History: No Pertinent History Cardiac: No Pertinent History Respiratory: No Pertinent History Gastrointestinal: Cholecystectomy Genitourinary: Other Musculoskeletal: Orthopedic Surgery Female Surgical History: Other Other Surgical History: bebo. urethral - expansion. bilat knee-endo w/ meniscus removed left, repair right. uterine ablation. endometriosis removal twice - Social History Smoking Status: Former smoker Exposure to second hand smoke: No Drug Use: none Patient Lives Alone: No - Nursing Vital Signs Nursing Vital Signs: Initial Vital Signs Temperature 99.0 F 08/17/21 19:57 Pulse Rate 74 08/17/21 19:57 Respiratory Rate 18 08/17/21 19:57 Blood Pressure 112/71 08/17/21 19:57 O2 Sat by Pulse Oximetry 96 08/17/21 19:57 Pain Scale Pain Intensity 7 - Physical Exam General Appearance: no apparent distress, alert, anxiety Eye Exam: PERRL/EOMI, eyes nml inspection Ears, Nose, Throat Exam: normal ENT inspection, moist mucous membranes Neck Exam: normal inspection, non-tender, supple, full range of motion Respiratory Exam: normal breath sounds, lungs clear, airway intact, No chest tenderness, No respiratory distress Cardiovascular Exam: regular rate/rhythm, normal heart sounds, normal peripheral pulses Gastrointestinal/Abdomen Exam: soft, normal bowel sounds, No tenderness Pelvic Exam: not done Rectal Exam: not done Back Exam: normal inspection, normal range of motion, No CVA tenderness, No vertebral tenderness Extremity Exam: normal inspection, normal range of motion, pelvis stable Neurologic Exam: alert, oriented x 3, cooperative, order runner II-XII nml as tested, normal mood/affect, nml cerebellar function, nml station & gait, sensation nml Skin Exam: normal color, warm, dry Lymphatic Exam: No adenopathy SpO2 Interpretation: normal O2 Delivery: Room Air - Course Nursing assessment & vital signs reviewed: Yes Ordered Tests: Active Orders 24 hr Category Date Time Status EKG-ER Only STAT Care 08/17/21 20:59 Active IV Insertion STAT Care 08/17/21 20:20 Active BMP Stat Lab 08/17/21 20:33 Completed MAGNESIUM Stat Lab 08/17/21 20:33 Completed T4 (Thyroxine) Stat Lab 08/17/21 20:30 Completed TSH [TSH, 3RD Generation] Stat Lab 08/17/21 20:30 Completed Medication Summary Generic Name Dose Route Start Last Admin Trade Name Freq PRN Reason Stop Dose Admin Potassium Chloride 20 meq in 100 mls @ 50 mls/hr 08/17/21 20:53 08/17/21 21:18 Potassium Chloride 20 Meq In Water 100ml IV 08/17/21 22:52 50 mls/hr STAT ONE Administration Discontinued Medications Generic Name Dose Route Start Last Admin Trade Name Freq PRN Reason Stop Dose Admin Sodium Chloride 500 mls @ 500 mls/hr 08/17/21 20:57 08/17/21 22:19 Sodium Chloride 0.9% 500 Ml IV 08/17/21 21:56 Infused .Q1H ONE Infusion Sodium Chloride Confirm 08/17/21 21:16 Sodium Chloride 0.9% 500 Ml Administered 08/17/21 21:17 Dose 500 mls @ ud IV .STK-MED ONE Potassium Chloride Confirm 08/17/21 21:16 Potassium Chloride 20 Meq In Water 100ml Administered 08/17/21 21:17 Dose 100 mls @ ud IV .STK-MED ONE Potassium Bicarbonate 50 meq 08/17/21 20:52 08/17/21 21:18 K-Lyte 25 Meq PO 08/17/21 20:53 50 meq STAT ONE Administration Potassium Bicarbonate Confirm 08/17/21 21:16 K-Lyte 25 Meq Administered 08/17/21 21:17 Dose 50 meq .ROUTE .STK-MED ONE Lab/Rad Data: Laboratory Result Diagrams 08/17/21 20:33 Laboratory Results 08/17/21 08/17/21 08/17/21 Range/Units 20:33 20:33 20:30 Sodium 138 (137-145) mmol/L Potassium 2.3 L* (3.5-5.1) mmol/L Chloride 94 L (98-107) mmol/L Carbon Dioxide 33 H (22-30) mmol/L Anion Gap 13.1 (5-15) MEQ/L BUN 16 (7-17) mg/dL Creatinine 0.75 (0.52-1.04) mg/dL Estimated GFR > 60.0 ML/MIN Glucose 181 H (74-106) mg/dL Calcium 9.6 (8.4-10.2) mg/dL Magnesium 1.7 (1.6-2.3) mg/dL Thyroxine (T4) 15.5 H (5.53-10.96) ug/dL TSH 3rd Generation 0.725 (0.47-4.68) mIU/L - Progress Progress: improved, re-examined Progress Note: 08/17/21 22:35 Medical decision making: Patient states she is feeling better. I reviewed that her labs. Patient, at the time of discharge will have received a total of approximately 75 mEq of potassium. We will send a prescription for potassium to her pharmacy that she can start taking twice a day. We will also have her follow-up on 08/19/2021 in our hospital lab to repeat a BMP and magnesium leve the results will be sent to Dr. Blair Brown, the patient's primary care physician. Counseled pt/family regarding: lab results, diagnosis, need for follow-up - Departure Departure Disposition: Home Clinical Impression: Hypokalemia, Hyperthyroidism Condition: Stable Critical Care Time: No Referrals: ABIGAIL FELDMAN [Primary Care Provider] - Additional Instructions: Take your medications as prescribed. Return to the hospital on 08/19/2021, to obtain repeat labs to assess your potassium and magnesium levels. Call Dr. Blair Brown's office Sunday morning to obtain your results and to receive further instructions. Prescriptions: Potassium Chloride 10 Meq Tab* [Klor Con 10 MEQ] 10 meq PO BID #10 tab
[2021-08-17 20:47] LABS: ANION GAP 13.1 MEQ/L (5-15); BLOOD UREA NITROGEN 16 mg/dL (7-17); CHLORIDE 94 mmol/L (98-107); Calcium 9.6 mg/dL (8.4-10.2); Carbon Dioxide 33 mmol/L (22-30); Creatinine 1 0.75 mg/dL (0.52-1.04); EST GLOMERULAR FILTRATION RATE > 60.0 ML/MIN; Glucose 181 mg/dL (74-106); SODIUM 138 mmol/L (137-145)
[2021-08-17 20:51] LABS: Potassium 2.3 mmol/L (3.5-5.1)
[2021-08-17] MEDS ORDERED: K-LYTE 25 MEQ PO ONE (20:52)
[2021-08-17] MEDS ORDERED: POTASSIUM CHLORIDE 20 mEq IN WATER 100ML 20 MEQ/100 ML BAG IV ONE (20:53)
[2021-08-17] MEDS ORDERED: Sodium Chloride 0.9% 500 ML 500 ML IV ONE ×2 (20:57→21:16)
[2021-08-17] MEDS ORDERED: K-LYTE 25 MEQ ONE (21:16)
[2021-08-17] MEDS ORDERED: POTASSIUM CHLORIDE 20 mEq IN WATER 100ML 100 ML IV ONE (21:16)
[2021-08-17 21:31] LABS: T4 (Thyroxine) 15.5 ug/dL (5.53-10.96); TSH, 3RD Generation 0.725 mIU/L (0.47-4.68)
[2021-08-17 23:15] VITALS: BP 110/68; PULSE 75; O2SAT 95
== END 2021-08-18 | disposition home or self-care (01) ==
LOC: ED 19:56
DX: E87.6 Hypokalemia (principal); E05.90 Thyrotoxicosis, unspecified without thyrotoxic crisis or storm; Z79.899 Other long term (current) drug therapy; Z79.01 Long term (current) use of anticoagulants; Z86.718 Personal history of other venous thrombosis and embolism; I10 Essential (primary) hypertension; E78.00 Pure hypercholesterolemia, unspecified; J44.9 Chronic obstructive pulmonary disease, unspecified
CPT/HCPCS: 36000; 36415; 80048; 83735; 84436; 84443; 93005; 99284; J3480; A9270-GY

== ENCOUNTER 2021-08-24 15:45 | Observation (INO) | payer BC ==
[2021-08-24 18:18] LABS: Hematocrit 43.8 % (35-47); Hemoglobin 13.8 gm/dl (12.0-16.0); Mean Cell Volume 89.9 fl (78-100); Mean Corpuscular Hemoglobin 28.3 pg (26-32); Mean Corpuscular Hgb Concent. 31.5 g/dl (32-36); Mean Platelet Volume 9.4 fl (7.5-11.0); Platelet Count 314 K/mm3 (150-450); Red Blood Count 4.87 M/mm3 (4.1-5.4); Red Cell Distribution Width 14.6 % (11.5-14.0); White Blood Count 14.8 K/mm3 (4.0-10.5)
[2021-08-24 18:43] LABS: Potassium 2.9 mmol/L (3.5-5.1)
[2021-08-24] MEDS: Sodium Chloride 0.9% W/ 20 mEq KCl/LITER 1,000 ML IV SCH (18:48)
[2021-08-24] MEDS: POTASSIUM CHLORIDE 20 mEq IN WATER 100ML 20 MEQ/100 ML BAG IV SCH ×2 (18:48→21:30)
[2021-08-24 20:17] LABS: Lymphocytes 54 % (24-44); Macrocytosis 1+; Monocyte 4 % (0.0-12.0); Neutrophils 42 % (36.0-66.0); Platelet Estimate NORMAL (NORMAL); Total Cells Counted 100
[2021-08-24] MEDS: Klor Con 10 MEQ PO SCH (21:30)
[2021-08-24] MEDS ORDERED: OXYCODONE-ACETAMINOPHEN 10-325 PO PRN (22:43)
[2021-08-24] MEDS ORDERED: PHENERGAN 25 MG PO PRN (22:52)
[2021-08-24] MEDS ORDERED: Ambien 10 MG ONE (23:18)
[2021-08-24] MEDS ORDERED: XARELTO 10 MG TABLET ONE (23:18)
[2021-08-24] MEDS ORDERED: Lexapro 10 MG ONE (23:19)
[2021-08-24] MEDS ORDERED: Pepcid 20 MG ONE (23:19)
[2021-08-25 00:03] LABS: Appearance CLEAR (CLEAR); Bilirubin NEGATIVE (NEGATIVE); Blood NEGATIVE Ery/ul (0-5); Epithelial Cells RARE /HPF (FEW); Glucose NEGATIVE (NEGATIVE); Ketones NEGATIVE (NEGATIVE); Leukocyte Esterase NEGATIVE (NEGATIVE); Mucus SLIGHT /HPF (NEGATIVE); Nitrite NEGATIVE (NEGATIVE); Protein,Urine Dip NEGATIVE (Negative); Specific Gravity 1.023 (1.005-1.025); Urobilinogen 2 mg/dL (0-1); WBC 0-2 /HPF (0-5)
[2021-08-25] MEDS: Sodium Chloride 0.9% W/ 20 mEq KCl/LITER 1,000 ML IV SCH ×2 (03:27→12:19)
[2021-08-25 03:40] LABS: BLOOD UREA NITROGEN 22 mg/dL (7-17); CHLORIDE 99 mmol/L (98-107); Calcium 8.1 mg/dL (8.4-10.2); Carbon Dioxide 29 mmol/L (22-30); Creatinine 1 0.68 mg/dL (0.52-1.04); EST GLOMERULAR FILTRATION RATE > 60.0 ML/MIN; Glucose 160 mg/dL (74-106); MAGNESIUM 2.1 mg/dL (1.6-2.3); SODIUM 137 mmol/L (137-145)
[2021-08-25] MEDS: POTASSIUM CHLORIDE 20 mEq IN WATER 100ML 20 MEQ/100 ML BAG IV SCH ×2 (04:34→08:05)
[2021-08-25] MEDS ORDERED: OXYCODONE-ACETAMINOPHEN 10-325 PO PRN (06:57)
--- NOTE | 2021-08-25 08:35 | PCM.HP.ADD ---
Addendum to History & Physical - History & Physical Addendum Addendum to History & Physical: This certifies that the History & Physical in the electronic chart reflects the current health status of the patient. If there are changes in the H&P these changes/exceptions are listed as follows.
--- NOTE | 2021-08-25 08:41 | PCM.DS ---
Discharge Summary Date of Admission: 08/24/21 17:08 Admitting Physician: ABIGAIL FELDMAN Primary Care Provider: ABIGAIL FELDMAN Allergies Allergies latex Allergy (Severe, Verified 08/17/21 20:16) Swelling morphine Allergy (Severe, Verified 08/17/21 20:16) seizures Hospital Summary - Hospital Course Hospital Course: Pt was seen in office yesterday, found to have potassium of 2.6 - this after ER visit for hypokalemia and increase in her potassium dosage. She was given a K- rider of 40mEq then potassium 3.0. In the midst of another K rider - if potassium up this afternoon, will send home on increased po potassium and have her f/u with lab tomorrow. If not resolving, will consult nephrology. - Vitals & Intake/Output Vital Signs: Vital Signs Temperature 97.7 F 08/25/21 07:20 Pulse Rate 69 08/25/21 07:20 Respiratory Rate 18 08/25/21 07:20 Blood Pressure 94/54 08/25/21 07:20 O2 Sat by Pulse Oximetry 95 08/25/21 07:20 Intake & Output: Intake & Output 08/22/21 08/23/21 08/24/21 08/25/21 11:59 11:59 11:59 11:59 Intake Total 2914 Output Total 600 Balance 2314 Weight 104.4 kg - Lab Result Diagrams: 08/24/21 18:05 08/25/21 03:15 Lab Results-Last 24 Hrs: Lab Results-Last 24 Hours 08/24/21 08/24/21 08/24/21 Range/Units 18:05 18:05 23:55 WBC 14.8 H (4.0-10.5) K/mm3 RBC 4.87 (4.1-5.4) M/mm3 Hgb 13.8 (12.0-16.0) gm/dl Hct 43.8 (35-47) % MCV 89.9 (78-100) fl MCH 28.3 (26-32) pg MCHC 31.5 L (32-36) g/dl RDW 14.6 H (11.5-14.0) % Plt Count 314 (150-450) K/mm3 MPV 9.4 (7.5-11.0) fl Segmented Neutrophils 42 (36.0-66.0) % Lymphocytes (Manual) 54 H (24-44) % Monocytes (Manual) 4 (0.0-12.0) % Platelet Estimate NORMAL (NORMAL) RBC Morphology ABNORMAL Macrocytosis 1+ Sodium (137-145) mmol/L Potassium 2.9 L* (3.5-5.1) mmol/L Chloride (98-107) mmol/L Carbon Dioxide (22-30) mmol/L Anion Gap (5-15) MEQ/L BUN (7-17) mg/dL Creatinine (0.52-1.04) mg/dL Estimated GFR ML/MIN Glucose (74-106) mg/dL Calcium (8.4-10.2) mg/dL Magnesium 2.0 (1.6-2.3) mg/dL Urine Color YELLOW (YELLOW) Urine Appearance CLEAR (CLEAR) Urine pH 6.0 (5-6) Ur Specific [place] 1.023 (1.005-1.025) Urine Protein NEGATIVE (Negative) Urine Ketones NEGATIVE (NEGATIVE) Urine Blood NEGATIVE (0-5) Moisés/ul Urine Nitrite NEGATIVE (NEGATIVE) Urine Bilirubin NEGATIVE (NEGATIVE) Urine Urobilinogen 2 (0-1) mg/dL Ur Leukocyte Esterase NEGATIVE (NEGATIVE) Urine WBC (Auto) 0-2 (0-5) /HPF Urine RBC (Auto) NONE (0-2) /HPF U Epithel Cells (Auto) RARE (FEW) /HPF Urine Bacteria (Auto) NONE (NEGATIVE) /HPF Urine Mucus (Auto) SLIGHT (NEGATIVE) /HPF Urine Culture Reflexed NO (NO) Urine Glucose NEGATIVE (NEGATIVE) mg/dL 08/25/21 Range/Units 03:15 WBC (4.0-10.5) K/mm3 RBC (4.1-5.4) M/mm3 Hgb (12.0-16.0) gm/dl Hct (35-47) % MCV (78-100) fl MCH (26-32) pg MCHC (32-36) g/dl RDW (11.5-14.0) % Plt Count (150-450) K/mm3 MPV (7.5-11.0) fl Segmented Neutrophils (36.0-66.0) % Lymphocytes (Manual) (24-44) % Monocytes (Manual) (0.0-12.0) % Platelet Estimate (NORMAL) RBC Morphology Macrocytosis Sodium 137 (137-145) mmol/L Potassium 3.0 L* (3.5-5.1) mmol/L Chloride 99 (98-107) mmol/L Carbon Dioxide 29 (22-30) mmol/L Anion Gap 11.0 (5-15) MEQ/L BUN 22 H (7-17) mg/dL Creatinine 0.68 (0.52-1.04) mg/dL Estimated GFR > 60.0 ML/MIN Glucose 160 H (74-106) mg/dL Calcium 8.1 L (8.4-10.2) mg/dL Magnesium 2.1 (1.6-2.3) mg/dL Urine Color (YELLOW) Urine Appearance (CLEAR) Urine pH (5-6) Ur Specific [place] (1.005-1.025) Urine Protein (Negative) Urine Ketones (NEGATIVE) Urine Blood (0-5) Moisés/ul Urine Nitrite (NEGATIVE) Urine Bilirubin (NEGATIVE) Urine Urobilinogen (0-1) mg/dL Ur Leukocyte Esterase (NEGATIVE) Urine WBC (Auto) (0-5) /HPF Urine RBC (Auto) (0-2) /HPF U Epithel Cells (Auto) (FEW) /HPF Urine Bacteria (Auto) (NEGATIVE) /HPF Urine Mucus (Auto) (NEGATIVE) /HPF Urine Culture Reflexed (NO) Urine Glucose (NEGATIVE) mg/dL Discharge Exam General Appearance: no apparent distress, alert Neurologic Exam: oriented x 3, cooperative Eye Exam: eyes nml inspection Ears, Nose, Throat Exam: moist mucous membranes Neck Exam: normal inspection, non-tender, No lymphadenopathy Respiratory Exam: normal breath sounds, lungs clear, No crackles/rales, No rhonchi, No wheezing Cardiovascular Exam: regular rate/rhythm, normal heart sounds, No murmur Gastrointestinal/Abdomen Exam: soft, normal bowel sounds, No tenderness, No distention, No mass, No guarding, No rebound Back Exam: normal inspection, No rash Extremity Exam: normal inspection, No pedal edema, No swelling Skin Exam: normal color, warm, dry, No rash Final Diagnosis/Problem List - Final Discharge Diagnosis/Problem (1) Hypokalemia Current Visit: No Status: Acute Assessment & Plan: On 2nd K-rider of 40 mEq. Recheck potassium. Mg is fine. Stopped chlorthalidone as it is potassium wasting. Will recheck post-potassium and send home if it is high enough. Recheck lab tomorrow. Code(s): E87.6 - HYPOKALEMIA - Discharge Disposition: Home, Self-Care Condition: Stable Prescriptions: No Action Oxycodone / APAP 10/325 mg [Oxycodone-Acetaminophen 10-325] 1 each PO Q8H PRN PRN PRN Reason: Pain Zolpidem Tartrate [Zolpidem Tartrate ER] 12.5 mg PO HS Simvastatin 20 mg PO DAILY Omeprazole 40 mg PO DAILY Ergocalciferol (Vitamin D2) [Vitamin D2] 50,000 unit PO WEEKLY Propranolol HCl [Propranolol HCl ER] 120 mg PO HS Levothyroxine Sodium 50 Mcg [Synthroid 50 Mcg] 75 mcg PO DAILY Rivaroxaban [Xarelto] 20 mg PO HS #0 Montelukast Sodium 10 mg [Singulair 10 MG] 10 mg PO DAILY Chlorthalidone 25 mg PO DAILY Escitalopram Oxalate 10 mg [Lexapro 10 MG] 10 mg PO HS Black Cohosh Root Extract [Black Cohosh] 40 mg PO DAILY Follow up with: ABIGAIL FELDMAN [Primary Care Provider] -
[2021-08-25] MEDS ORDERED: NON-FORMULARY ITEM PO SCH (10:00)
[2021-08-25] MEDS ORDERED: Singulair 10 MG PO SCH (10:00)
[2021-08-25] MEDS ORDERED: SYNTHROID 50 MCG PO SCH (10:00)
[2021-08-25] MEDS ORDERED: Protonix 40MG Tablet PO SCH (10:00)
[2021-08-25] MEDS ORDERED: SYNTHROID 75 MCG PO SCH (10:00)
[2021-08-25] MEDS ORDERED: NON-FORMULARY ITEM (Omeprazole [Omeprazole] 40 MG Capsule.Dr) PO SCH (10:00)
[2021-08-25] MEDS ORDERED: ZOCOR 20MG PO SCH (10:00)
[2021-08-25] MEDS: Klor Con 10 MEQ PO SCH (10:01)
[2021-08-25 11:42] VITALS: BP 106/60; PULSE 66; O2SAT 94
[2021-08-25] MEDS ORDERED: Lexapro 10 MG PO SCH ×2 (22:00)
[2021-08-25] MEDS ORDERED: Pepcid 20 MG PO SCH ×2 (22:00)
[2021-08-25] MEDS ORDERED: Ambien 10 MG PO SCH ×2 (22:00)
[2021-08-25] MEDS ORDERED: XARELTO 10 MG TABLET PO SCH ×2 (22:00)
[2021-08-25] MEDS ORDERED: PROPRANOLOL HCL 120 MG PO SCH (22:00)
== END 2021-08-25 14:34 | disposition home or self-care (01) ==
LOC: MED SURG 17:08
PROVIDERS: ADMIT Family Medicine; ATTEND Family Medicine
DX: E87.6 Hypokalemia (principal); R53.1 Weakness; Z79.899 Other long term (current) drug therapy
CPT/HCPCS: 36415; 80048; 81001; 83735; 84132; 85025; 93268; G0378; J3480; A9270-GY

== ENCOUNTER 2022-01-18 08:25 | Day surgery (SDC) | payer BC ==
[2022-01-18] MEDS ORDERED: Versed 2 MG/2 ML Injection ONE (09:14)
[2022-01-18] MEDS ORDERED: Depo-Medrol 40 MG/ML IM ONE (09:40)
[2022-01-18] MEDS ORDERED: LIDOCAINE HCL 2% 100 MG/5 ML IJ ONE (09:40)
[2022-01-18] MEDS ORDERED: Lactated Ringers 1,000 ML IV ONE (10:13)
[2022-01-18] MEDS ORDERED: DIPRIVAN 200 MG/20 ML IV ONE (10:17)
--- NOTE | 2022-01-18 11:25 | XRAY ---
Indication: Bilateral L4-S1 MBB. Intraoperative fluoroscopy provided for 35 seconds. Single digital spot image submitted for interpretation demonstrates posterior needle tips projecting over the expected left and right L4-S1 nerve roots. Correlate with intraoperative findings/report.
--- NOTE | 2022-01-18 12:31 | XRAY ---
35 seconds of fluoroscopy was used in surgery for a bilateral L4-S1 MBB.
== END 2022-01-18 10:50 | disposition home or self-care (01) ==
LOC: SDC-PAIN 08:25
PROVIDERS: ATTEND Psychiatry & Neurology Pain Medicine
DX: M47.816 Spondylosis without myelopathy or radiculopathy, lumbar region (principal); Z79.899 Other long term (current) drug therapy
CPT/HCPCS: 63685; 64493; 64494; 72020; 77002; 84703; J1030; J2250; J2704

== ENCOUNTER 2022-02-15 08:34 | Day surgery (SDC) | payer BC ==
[2022-02-15] MEDS ORDERED: Lactated Ringers 1,000 ML IV ONE (10:33)
[2022-02-15] MEDS ORDERED: Xylocaine-Mpf 2% 5 Ml Vial ONE (11:32)
[2022-02-15] MEDS ORDERED: DIPRIVAN 200 MG/20 ML IV ONE (11:32)
--- NOTE | 2022-02-15 12:38 | XRAY ---
Indication: Bilateral L4-S1 MBB. Intraoperative fluoroscopy provided for 21 seconds. Single digital spot image submitted for interpretation demonstrates posterior needle tips projecting over the expected left and right L4-S1 nerve roots. Correlate with intraoperative findings/report.
--- NOTE | 2022-02-15 14:06 | XRAY ---
21 seconds fluoroscopy in surgery for bilateral L4-S1 MBB.
== END 2022-02-15 12:02 | disposition home or self-care (01) ==
LOC: SDC-PAIN 08:34
PROVIDERS: ATTEND Psychiatry & Neurology Pain Medicine
DX: M47.816 Spondylosis without myelopathy or radiculopathy, lumbar region (principal); Z79.899 Other long term (current) drug therapy
CPT/HCPCS: 72020; 77002; 84703; J2704

== ENCOUNTER 2023-02-12 11:53 | Day surgery (SDC) | payer BC ==
--- NOTE | 2023-02-12 10:20 | HP ---
DATE OF SURGERY: 02/12/2023 HISTORY OF PRESENT ILLNESS: A 52-year-old with solid food getting stuck upper esophagus area may be a little more towards the left. Last upper endoscopy a couple years ago. Family history negative for esophageal problems. She had dilatation a couple of years ago. PAST MEDICAL HISTORY: Hypertension, chronic obstructive pulmonary disease, hypothyroidism, arthritis, hyperlipidemia, history of headaches, migraines and sinus infections in the past. Corrective lenses. PAST SURGICAL HISTORY: Knee arthroplasty. Endometrial ablation. Cholecystectomy. EGD with dilatation in the past and colonoscopy in the past. MEDICATIONS: Ergocalciferol, Topamax, potassium chloride, Xarelto, zolpidem, famotidine, escitalopram, propranolol, promethazine, oxycodone, spironolactone, simvastatin, montelukast, Euthyrox, Black Cohosh, potassium chloride. ALLERGIES: MORPHINE. LATEX. FAMILY HISTORY: Mother had Factor V. SOCIAL HISTORY: Former smoker. No alcohol use. REVIEW OF SYSTEMS: Fourteen systems reviewed. No chest pain or palpitations. Other systems negative or noncontributory as above and per preadmission questionnaire. PHYSICAL EXAMINATION: Weight 244. BMI 38.22. GENERAL: No acute distress. HEENT: Sclerae nonicteric. EOMI. Oropharynx moist mucous membranes. NECK: No JVD. CHEST: Equal excursion, nonlabored breathing. CVS: Regular rate and rhythm. ABDOMEN: Soft. No peritoneal signs. EXTREMITIES: No edema. No cyanosis. NEURO: Alert. PSYCH: Appropriate mood and affect. SKIN: Dry. IMPRESSION: Dysphagia in need of EGD possible biopsy possible dilatation. General risk of bleeding or infection, risk of bowel injury or perforation possibly requiring open procedure or transfer for stent placement, possibility of no improvement in swallowing possibly requiring other procedures, studies or referrals. Possible risk of no area to dilate, possible neurologic or functional problem that dilatation may not benefit. If dilatation is accomplished and does improve her swallowing, it may be repeated down the road. She understands and agrees with plan of EGD possible biopsy possible dilatation as an outpatient.
[2023-02-12] MEDS ORDERED: Lactated Ringers 1,000 ML IV SCH (12:30)
[2023-02-12] MEDS ORDERED: Versed 2 MG/2 ML Injection IV PRN (12:30)
[2023-02-12] MEDS ORDERED: Zofran 4 MG/2 ML VIAL IV STA (12:31)
[2023-02-12 13:01] VITALS: O2SAT 97
[2023-02-12] MEDS ORDERED: Xylocaine-Mpf 2% 5 Ml Vial ONE (14:07)
[2023-02-12] MEDS ORDERED: DIPRIVAN 200 MG/20 ML IV ONE (14:07)
[2023-02-12] MEDS ORDERED: Versed 2 MG/2 ML Injection ONE (14:08)
[2023-02-12 14:30] VITALS: BP 114/63; PULSE 67
--- NOTE | 2023-02-13 07:49 | OP ---
SURGERY DATE/TIME: 02/12/2023 1330 PREOPERATIVE DIAGNOSIS: History of dysphagia. POSTOPERATIVE DIAGNOSES: 1) Mild gastritis. 2) Gastric polyps. 3) Proximal esophageal narrowing and spasm. PROCEDURES: 1) EGD with cold biopsy to antrum to evaluate for Helicobacter pylori. 2) Cold biopsy gastric polyp gastric fundus. 3) Proximal esophageal dilatation (size 20 balloon dilator). SURGEON: Dr. Benjy Hernández. GANDY DANCER: Asha Mcknight, Medical Student III. ANESTHESIA: MAC. ESTIMATED BLOOD LOSS: Minimal. INDICATIONS: As noted above. Risks and benefits explained in detail and not limited to and consent was obtained. DESCRIPTION OF PROCEDURE AND FINDINGS: The patient is taken to the endoscopy room. MAC anesthesia introduced. After official time out and no disagreement with planned procedure, bite block positioned. Video gastroscope easily passed down the oropharynx to proximal esophagus where she was feeling food getting stuck. She had some spasm and narrowing. The scope was able to be just passed through here. There was no evidence of any mass or lesion to biopsy. The scope is passed through the patent gastroesophageal junction through the patent pylorus to the third portion of the duodenum. Third, second and first portion of the duodenum grossly unremarkable. Back in the stomach he had some gastric erythema, some mild gastritis. Cold biopsy taken to evaluate for Helicobacter pylori. Good hemostasis noted. On retroflex, the gastroesophageal junction fairly snug against the scope. No signs of any big hiatal hernia. The scope is straightened. She did have a gastric polyp in the fundus. Cold biopsy taken for further evaluation. Good hemostasis noted. The scope pulled back and the gastroesophageal junction was about 38 cm. The Z-line and gastroesophageal junction appeared to be crisp with no signs of any Villalta's, no signs of any erosions. The scope is then carefully withdrawn up the esophagus to the proximal narrowed area. Again no evidence of any masses or lesions to biopsy. It was felt that given her symptoms this warranted dilatation. Therefore the scope is passed back down in the stomach. A 20 balloon catheter carefully inserted into the stomach and pulled upward. A proximal esophageal narrowed area carefully inflated first stage 30 seconds, second stage 30 seconds, final stage size 20 balloon dilator inflated for 2 minutes. The balloon catheter is then released and withdrawn. The scope more easily passed through this area back down in the stomach and carefully withdrawn. Good hemostasis noted. There are no signs of any full thickness issues or injury secondary to dilatation.
== END 2023-02-12 14:45 | disposition home or self-care (01) ==
LOC: SDC 11:53
PROVIDERS: ATTEND Surgery
DX: K29.70 Gastritis, unspecified, without bleeding (principal); Z87.19 Personal history of other diseases of the digestive system; K31.7 Polyp of stomach and duodenum; K22.2 Esophageal obstruction
CPT/HCPCS: 82947; 88305; C1726; J2250; J2405; J2704

== ENCOUNTER 2023-03-22 11:06 | Emergency (ER) | payer BC ==
[2023-03-22] MEDS ORDERED: Sodium Chloride 0.9% 1000 ML 1,000 ML IV STA (11:45)
[2023-03-22] MEDS ORDERED: TORAdol 30 mg Injection IV ONE (11:45)
[2023-03-22] MEDS ORDERED: Zofran 4 MG/2 ML VIAL IV ONE (11:45)
[2023-03-22 11:48] LABS: Appearance Clear (Clear); Bacteria None Seen /HPF (None Seen); Bilirubin Negative (Negative); Blood Large (Negative); Epithelial Cells Moderate /HPF (None Seen); Glucose, Urine Negative (Negative); Hyaline Casts NONE SEEN /LPF (0-2); Ketones Negative (Negative); Leukocyte Esterase Trace (Negative); Nitrite Negative (Negative); Ph 5.5 (4.6-8.0); Protein,Urine Dip Negative (Negative); RBC 51-100 /HPF (0-5); Specific Gravity 1.015 (1.005-1.030); Urobilinogen 0.2 mg/dL (0.2)
[2023-03-22 11:50] LABS: ADD URINE CULTURE? YES (NO)
[2023-03-22] MEDS ORDERED: TORAdol 30 mg Injection ONE (11:56)
[2023-03-22] MEDS ORDERED: Sodium Chloride 0.9% 1000 ML 1,000 ML ONE (11:56)
[2023-03-22] MEDS ORDERED: Zofran 4 MG/2 ML VIAL ONE (11:56)
[2023-03-22 12:15] LABS: Absolute Neutrophil Ct (ANC) 4.99 x10^3/uL (1.4-6.9); BASOPHIL % 0.4 % (0.0-0.4); Basophil (Absolute #) 0.03 x10^3/uL (0-0.4); Eosinophil (Absolute #) 0.17 x10^3/uL (0-0.5); Hematocrit 41.3 % (35-47); Hemoglobin 12.7 g/dL (12.0-16.0); IMMATURE GRAN # 0.03 x10^3u/L (0.00-0.03); IMMATURE GRAN % 0.4 % (0.00-0.4); Lymphocyte (Absolute #) 2.38 x10^3/uL (1.0-4.6); Lymphocytes % 28.1 % (24.0-44.0); Mean Cell Volume 90.4 fL (78-100); Mean Corpuscular Hemoglobin 27.8 pg (26-32); Mean Corpuscular Hgb Concent. 30.8 g/dL (32-36); Mean Platelet Volume 9.7 fL (7.5-11.0); Monocyte (Absolute #) 0.88 x10^3/uL (0.0-1.3); Monocytes % 10.4 % (0.0-12.0); Neutrophil % 58.7 % (36.0-66.0); Platelet Count 230 x10^3/uL (150-450); Red Blood Count 4.57 x10^6/uL (4.1-5.4); Red Cell Distribution Width 15.1 % (11.5-14.0); White Blood Count 8.5 x10^3/uL (4.0-10.5)
[2023-03-22 12:32] LABS: ALBUMIN 3.9 g/dL (3.5-5.0); ALKALINE PHOSPHATASE 93 U/L (38-126); ANION GAP 13.7 MEQ/L (5-15); BLOOD UREA NITROGEN 16 mg/dL (7-17); CHLORIDE 109 mmol/L (98-107); Calcium 8.4 mg/dL (8.4-10.2); Carbon Dioxide 23 mmol/L (22-30); Creatinine 1 0.79 mg/dL (0.52-1.04); EST GLOMERULAR FILTRATION RATE > 60.0 ML/MIN; Glucose 85 mg/dL (74-106); LIPASE 477 U/L (23-300); Potassium 3.6 mmol/L (3.5-5.1); SGOT/AST 28 U/L (14-36); SGPT/ALT 25 U/L (0-35); SODIUM 142 mmol/L (137-145); Total Protein 7.1 g/dL (6.3-8.2)
[2023-03-22 12:38] VITALS: PULSE 61; O2SAT 98
--- NOTE | 2023-03-22 12:40 | XRAY ---
Indication: Bilateral flank pain. Hematuria. Nausea and vomiting. Multiple contiguous axial images obtained through the abdomen and pelvis without contrast. Comparison: None Lung bases clear of infiltrate and effusion. Heart not enlarged. Noncontrasted stomach and bowel loops appear nonobstructed with normal appendix. Previous cholecystectomy. Distal left ureter demonstrates 7 mm UVJ calculus. Proximal left ureter is slightly prominent along with mild hydronephrosis favors partial obstructive uropathy. Left lower kidney demonstrates additional punctate calculus. No free fluid/air. Remaining liver, pancreas, spleen, adrenal glands, kidneys, ureters, bladder, uterus, and aorta are unremarkable for noncontrast exam. Osseous structures intact. Impression: 1. 7 mm left UVJ calculus producing partial obstruction. Additional left renal punctate calculus. 2. Remaining CT abdomen/pelvis without contrast exam is negative.
[2023-03-22] MEDS ORDERED: DEMEROL 50 MG IV ONE (12:43)
[2023-03-22] MEDS ORDERED: Flomax 0.4 MG PO STA (12:43)
[2023-03-22] MEDS ORDERED: DEMEROL 50 MG ONE (12:51)
[2023-03-22] MEDS ORDERED: Flomax 0.4 MG ONE (12:52)
--- NOTE | 2023-03-22 13:58 | ERPHSYRPT ---
- History of Present Illness Time Seen by Provider: 03/22/23 11:20 Historian: patient Exam Limitations: no limitations Patient Subjective Stated Complaint: C/O Bilateral Flank pain. States Dr. Pinto thinks she might have kidney stones. Triage Nursing Assessment: Patient ambulated back to ER without difficulties. No SOB. She is alert and oriented. Abdomen is soft. Bowel sounds present. 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 Has associated nausea but no vomiting. Timing/Duration: yesterday, gradual onset, worse Activities at Onset: rest, sleep Quality: sharpness Abdominal Pain Onset Location: flank Pain Radiation: groin Severity of Pain-Max: severe Severity of Pain-Current: severe Modifying Factors: Worsens With: movement, palpation Associated Symptoms: nausea Previous symptoms: no prior history Allergies/Adverse Reactions: latex Allergy (Severe, Verified 03/22/23 11:39) Swelling morphine Allergy (Severe, Verified 03/22/23 11:39) seizures Home Medications: Omeprazole 40 mg PO DAILY 08/07/19 [History] Oxycodone / APAP 10/325 mg [Oxycodone-Acetaminophen 10-325] 1 each PO Q8H PRN PRN 08/07/19 [History] Montelukast Sodium 10 mg [Singulair 10 MG] 10 mg PO DAILY 04/20/21 [History] Escitalopram Oxalate [Lexapro] 10 mg PO HS 01/15/23 [History] Famotidine 40 mg PO HS 01/15/23 [History] Levothyroxine Sodium [Euthyrox] 75 mcg PO DAILY 01/15/23 [History] Promethazine HCl 25 mg [Phenergan 25 mg] 25 mg PO Q6H PRN PRN 01/15/23 [History] Propranolol HCl [Inderal ] 60 mg PO HS 01/15/23 [History] Spironolactone 25 mg [Aldactone 25 MG] 25 mg PO DAILY 01/15/23 [History] Topiramate 100 mg [Topamax 100 MG] 100 mg PO BID PRN 01/15/23 [History] Zolpidem Tartrate [Ambien Cr] 12.5 mg PO HS 01/15/23 [History] Rosuvastatin Calcium 1 tab PO DAILY 03/22/23 [History] Hx Tetanus, Diphtheria Vaccination/Date Given: Yes Hx Influenza Vaccination/Date Given: No Hx Pneumococcal Vaccination/Date Given: No Immunizations Up to Date: Yes Travel Risk - International Travel Have you traveled outside of the country in past 3 weeks: No - Coronavirus Screening Are you exhibiting any of the following symptoms?: Yes Symptoms: Vomiting/Diarrhea Close contact with a COVID-19 positive Pt in past 14-21 Days: No - Vaccine Status Have you recieved a Covid-19 vaccination: No - Review of Systems Constitutional: No Symptoms Eyes: No Symptoms Ears, Nose, & Throat: No Symptoms Respiratory: No Symptoms Cardiac: No Symptoms Abdominal/Gastrointestinal: Abdominal Pain, Nausea Genitourinary Symptoms: Hematuria, Flank Pain Musculoskeletal: No Symptoms Skin: No Symptoms Neurological: No Symptoms Endocrine: No Symptoms - Past Medical History Pertinent Past Medical History: Yes Neurological History: Migraines ENT History: No Pertinent History Cardiac History: Deep Vein Thrombosis, High Cholesterol, Hypertension Respiratory History: COPD, Sleep Apnea Endocrine Medical History: Hypothyroidism Musculoskeletal History: Arthritis GI Medical History: Pancreatitis History: No Pertinent History Psycho-Social History: No Pertinent History Female Reproductive Disorders: Endometriosis Other Medical History: factor 5 lieden, protien S, COVID -19 07-23-21 - Past Surgical History Past Surgical History: Yes Neuro Surgical History: No Pertinent History Cardiac: No Pertinent History Respiratory: No Pertinent History Gastrointestinal: Cholecystectomy Genitourinary: Other Musculoskeletal: Orthopedic Surgery Female Surgical History: Other Other Surgical History: urethral - expansion. bilat knee-endo w/ meniscus removed left, repair right. uterine ablation. endometriosis removal twice - Social History Smoking Status: Never smoker How long have you smoked: 8 yrs Exposure to second hand smoke: No Drug Use: none Patient Lives Alone: No () - Nursing Vital Signs Nursing Vital Signs: Initial Vital Signs Temperature 98.7 F 03/22/23 11:06 Pulse Rate 66 03/22/23 11:06 Respiratory Rate 18 03/22/23 11:06 Blood Pressure 104/58 03/22/23 11:06 O2 Sat by Pulse Oximetry 98 03/22/23 11:06 Pain Scale Pain Intensity 6 - Physical Exam General Appearance: no apparent distress, alert Eye Exam: PERRL/EOMI Ears, Nose, Throat Exam: normal ENT inspection Neck Exam: normal inspection, full range of motion Respiratory Exam: normal breath sounds, lungs clear Cardiovascular Exam: regular rate/rhythm, normal heart sounds Gastrointestinal/Abdomen Exam: soft, normal bowel sounds, tenderness (Left lower quadrant), guarding Back Exam: normal inspection, normal range of motion, CVA tenderness (Left) Extremity Exam: normal inspection, normal range of motion Neurologic Exam: alert, oriented x 3, cooperative Skin Exam: normal color SpO2 Interpretation: normal SpO2: 98 O2 Delivery: Room Air Ordered Tests: Active Orders 24 hr Category Date Time Status IV Insertion STAT Care 03/22/23 11:45 Active ABDOMEN AND PELVIS W/0 CONTRAS [CT] Stat Exams 03/22/23 11:46 Completed CBC W DIFF Stat Lab 03/22/23 12:01 Completed CMP Stat Lab 03/22/23 12:01 Completed CULTURE,URINE Stat Lab 03/22/23 11:25 Received LIPASE Stat Lab 03/22/23 12:01 Completed UA W/RFX UR CULTURE Stat Lab 03/22/23 11:25 Completed Medication Summary Discontinued Medications Generic Name Dose Route Start Last Admin Trade Name Freq PRN Reason Stop Dose Admin Sodium Chloride 1,000 mls @ 999 mls/hr 03/22/23 11:45 03/22/23 13:07 Sodium Chloride 0.9% 1000 Ml IV 03/22/23 12:45 Infused .Q1H1M STA Infusion Sodium Chloride Confirm 03/22/23 11:56 Sodium Chloride 0.9% 1000 Ml Administered 03/22/23 11:57 Dose 1,000 mls @ ud .ROUTE .STK-MED ONE Ketorolac Tromethamine 30 mg 03/22/23 11:45 03/22/23 11:59 Ketorolac Tromethamine 30 Mg/Ml Inj IV 03/22/23 11:46 30 mg STAT ONE Administration Ketorolac Tromethamine Confirm 03/22/23 11:56 Ketorolac Tromethamine 30 Mg/Ml Inj Administered 03/22/23 11:57 Dose 30 mg .ROUTE .STK-MED ONE Meperidine HCl 25 mg 03/22/23 12:43 03/22/23 12:55 Meperidine Hcl 50 Mg/Ml Carp IV 03/22/23 12:44 25 mg STAT ONE Administration Meperidine HCl Confirm 03/22/23 12:51 Meperidine Hcl 50 Mg/Ml Carp Administered 03/22/23 12:52 Dose 50 mg .ROUTE .STK-MED ONE Ondansetron HCl 4 mg 03/22/23 11:45 03/22/23 11:58 Ondansetron Hcl 4 Mg/2 Ml Vial IV 03/22/23 11:46 4 mg STAT ONE Administration Ondansetron HCl Confirm 03/22/23 11:56 Ondansetron Hcl 4 Mg/2 Ml Vial Administered 03/22/23 11:57 Dose 4 mg .ROUTE .STK-MED ONE Tamsulosin HCl 0.4 mg 03/22/23 12:43 03/22/23 12:54 Tamsulosin Hcl 0.4 Mg Cap PO 03/22/23 12:44 0.4 mg ONCE STA Administration Tamsulosin HCl Confirm 03/22/23 12:52 Tamsulosin Hcl 0.4 Mg Cap Administered 03/22/23 12:53 Dose 0.4 mg .ROUTE .STK-MED ONE Lab/Rad Data: Laboratory Result Diagrams 03/22/23 12:01 03/22/23 12:01 Laboratory Results 03/22/23 03/22/23 03/22/23 Range/Units 12:01 12:01 11:25 WBC 8.5 (4.0-10.5) x10^3/uL RBC 4.57 (4.1-5.4) x10^6/uL Hgb 12.7 (12.0-16.0) g/dL Hct 41.3 (35-47) % MCV 90.4 (78-100) fL MCH 27.8 (26-32) pg MCHC 30.8 L (32-36) g/dL RDW 15.1 H (11.5-14.0) % Plt Count 230 (150-450) x10^3/uL MPV 9.7 (7.5-11.0) fL Gran % 58.7 (36.0-66.0) % Immature Gran % (Auto) 0.4 (0.00-0.4) % Nucleat RBC Rel Count 0.0 (0.00-0.1) % Eos # (Auto) 0.17 (0-0.5) x10^3/uL Immature Gran # (Auto) 0.03 (0.00-0.03) x10^3u/L Absolute Lymphs (auto) 2.38 (1.0-4.6) x10^3/uL Absolute Monos (auto) 0.88 (0.0-1.3) x10^3/uL Absolute Nucleated RBC 0.00 (0.00-0.01) x10^3u/L Lymphocytes % 28.1 (24.0-44.0) % Monocytes % 10.4 (0.0-12.0) % Eosinophils % 2.0 (0.00-5.0) % Basophils % 0.4 (0.0-0.4) % Absolute Granulocytes 4.99 (1.4-6.9) x10^3/uL Basophils # 0.03 (0-0.4) x10^3/uL Sodium 142 (137-145) mmol/L Potassium 3.6 (3.5-5.1) mmol/L Chloride 109 H (98-107) mmol/L Carbon Dioxide 23 (22-30) mmol/L Anion Gap 13.7 (5-15) MEQ/L BUN 16 (7-17) mg/dL Creatinine 0.79 (0.52-1.04) mg/dL Estimated GFR > 60.0 ML/MIN Glucose 85 (74-106) mg/dL Calcium 8.4 (8.4-10.2) mg/dL Total Bilirubin 0.80 (0.2-1.3) mg/dL AST 28 (14-36) U/L ALT 25 (0-35) U/L Alkaline Phosphatase 93 (38-126) U/L Serum Total Protein 7.1 (6.3-8.2) g/dL Albumin 3.9 (3.5-5.0) g/dL Lipase 477 H (23-300) U/L Urine Color Yellow (Yellow) Urine Appearance Clear (Clear) Urine pH 5.5 (4.6-8.0) Ur Specific [place] 1.015 (1.005-1.030) Urine Protein Negative (Negative) Urine Glucose (UA) Negative (Negative) mg/dL Urine Ketones Negative (Negative) Urine Blood Large A (Negative) Urine Nitrite Negative (Negative) Urine Bilirubin Negative (Negative) Urine Urobilinogen 0.2 (0.2) mg/dL Ur Leukocyte Esterase Trace A (Negative) U Hyaline Cast (Auto) NONE SEEN (0-2) /LPF Urine Microscopic RBC 51-100 A (0-5) /HPF Urine Microscopic WBC 11-20 A (0-5) /HPF Ur Epithelial Cells Moderate A (None Seen) /HPF Urine Bacteria None Seen (None Seen) /HPF Urine Culture Reflexed YES (NO) - Progress Progress: improved, pain not gone completely, re-examined Progress Note: 03/22/23 13:54 52-year-old with 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 Patient is given symptomatic treatment with pain medications along with fluids, on reevaluation pain is much improved but not completely resolved. Urinalysis consistent with stone with hematuria and has stable renal functions and CT showing 7 mm left UVJ stone with partial obstruction. Call Dr. Stark urology, recommended patient to be sent to office to be seen today. I have discussed lab work/CT scan finding, plan of care and following up with urology with patient in detail who understand and agrees to go up there after discharge from here. Discussed with Dr.: Other () Will see patient in: office Counseled pt/family regarding: lab results, diagnosis, need for follow-up, rad results Medical Desision Making - Discussion of managment Care discussed with:: specialist (Urology) Reviewed:: Test results, Need for additional workup Agreed on:: Treatment plan, need for follow-up Will see patient: In office - Diagnostic Testing Diagnostic test were ordered, analyzed, and reviewed by me: Yes Radiological Interpretation: Reviewed by me - Risk of complications The pt has a high risk of morbidity or mortality based on: Need for major surgery in patient with known risk factors - Departure Departure Disposition: Home Clinical Impression: Ureterolithiasis Condition: Stable Critical Care Time: No Referrals: ABIGAIL FELDMAN [Primary Care Provider] - Follow up/PCP as directed SANCHO STARK [COURTESY STAFF] - Follow up/PCP as directed (Go to urology office now) Instructions: Kidney Stones (DC), Flank Pain Additional Instructions: Go to urology office now and follow his instructions. Return to ER for worsening pain, intractable nausea vomiting/fever chills/increasing blood in urine etc.
[2023-03-22 14:20] VITALS: BP 94/63
== END 2023-03-22 14:21 | disposition home or self-care (01) ==
LOC: ED 11:06
DX: N20.1 Calculus of ureter (principal); D68.51 Activated protein C resistance; E78.5 Hyperlipidemia, unspecified; I10 Essential (primary) hypertension; Z20.828 Contact with and (suspected) exposure to other viral communicable diseases; Z79.01 Long term (current) use of anticoagulants; Z86.16 Personal history of COVID-19; Z79.899 Other long term (current) drug therapy
CPT/HCPCS: 36000; 36415; 74176; 80053; 81001; 83690; 85025; 87086; 96360; 96374; 96375; 99284; J1885; J2175; J2405; A9270-GY

== ENCOUNTER 2023-08-22 07:07 | Day surgery (SDC) | payer BC ==
[2023-08-22] MEDS ORDERED: XYLOCAINE 1% HCL 20 ML MDV IJ ONE (07:08)
[2023-08-22] MEDS ORDERED: Depo-Medrol 40 MG/ML IM ONE (07:08)
[2023-08-22] MEDS ORDERED: BUPIVACAINE 0.5% VIAL IJ ONE (07:08)
[2023-08-22 07:21] LABS: HCG URINE TEST NEGATIVE (NEGATIVE)
[2023-08-22] MEDS ORDERED: Zofran 4 MG/2 ML VIAL ONE (07:59)
[2023-08-22] MEDS ORDERED: Versed 2 MG/2 ML Injection ONE (08:22)
[2023-08-22] MEDS ORDERED: DIPRIVAN 200 MG/20 ML IV ONE (08:32)
--- NOTE | 2023-08-22 09:48 | XRAY ---
Indication: Right L4-S1 RFA. Intraoperative fluoroscopy provided for 30 seconds. 3 digital spot image submitted for interpretation demonstrates posterior needle tips projecting over the expected right L4-S1 nerve roots. Correlate with intraoperative findings/report.
--- NOTE | 2023-08-22 11:37 | XRAY ---
30 seconds of fluoroscopy was used in surgery for a right L4-S1 RFA.
[2023-08-22] MEDS ORDERED: Lactated Ringers 1,000 ML IV ONE (11:42)
== END 2023-08-22 09:07 | disposition home or self-care (01) ==
LOC: SDC-PAIN 07:07
PROVIDERS: ATTEND Psychiatry & Neurology Pain Medicine
DX: M47.816 Spondylosis without myelopathy or radiculopathy, lumbar region (principal); Z79.899 Other long term (current) drug therapy
CPT/HCPCS: 64635; 64636; 72100; 77002; 81025; 82947; J1030; J2250; J2405; J2704

== ENCOUNTER 2023-09-05 07:05 | Day surgery (SDC) | payer BC ==
[2023-09-05] MEDS ORDERED: BUPIVACAINE 0.5% VIAL IJ ONE (07:06)
[2023-09-05] MEDS ORDERED: LIDOCAINE HCL 1% 50 MG/5 ML VL PF IJ ONE (07:06)
[2023-09-05] MEDS ORDERED: Depo-Medrol 40 MG/ML IM ONE (07:06)
[2023-09-05 07:38] LABS: HCG URINE TEST NEGATIVE (NEGATIVE)
[2023-09-05] MEDS ORDERED: Versed 2 MG/2 ML Injection ONE ×2 (08:07→08:50)
[2023-09-05] MEDS ORDERED: Zofran 4 MG/2 ML VIAL ONE (08:10)
[2023-09-05] MEDS ORDERED: DIPRIVAN 200 MG/20 ML IV ONE (08:50)
[2023-09-05] MEDS ORDERED: Lactated Ringers 1,000 ML IV ONE (09:47)
--- NOTE | 2023-09-05 10:27 | XRAY ---
Indication: Left L4-S1 RFA. Intraoperative fluoroscopy provided for 24 seconds. 3 digital spot images submitted for interpretation demonstrates posterior needle tips projecting over the expected left L4-S1 nerve roots. Correlate with intraoperative findings/report.
--- NOTE | 2023-09-05 11:46 | XRAY ---
24 seconds of fluoroscopy was used in surgery for a left L4-S1 RFA.
== END 2023-09-05 09:23 | disposition home or self-care (01) ==
LOC: SDC-PAIN 07:05
PROVIDERS: ATTEND Psychiatry & Neurology Pain Medicine
DX: M47.816 Spondylosis without myelopathy or radiculopathy, lumbar region (principal); E11.9 Type 2 diabetes mellitus without complications
CPT/HCPCS: 36415; 64635; 64636; 72100; 77002; 81025; 82947; J1030; J2001; J2250; J2405; J2704

== ENCOUNTER 2023-12-12 13:44 | Emergency (ER) | payer BC ==
--- NOTE | 2023-12-12 14:22 | ERPHSYRPT ---
- History of Present Illness Time Seen by Provider: 12/12/23 14:22 Historian: patient Exam Limitations: no limitations Physician History: This is an obese 53-year-old white female patient of nurse practitioner Mary who presents with left lower abdominal pain for 4 days followed by right side lower abdominal pain today and bilateral flank pain that has worsened since this morning. She has taken a Percocet and the pain has persisted at a 10 out of 10 level. Patient does have a history of ureterolithiasis. Patient denies chest pain. She denies shortness of breath. Patient has a history of hyperlipidemia, gastroesophageal reflux disease, hypothyroidism, migraine headaches, DVT, hypertension and COPD. Quality: aching, sharpness Abdominal Pain Onset Location: RLQ, LLQ, flank Severity of Pain-Max: moderate (Bilateral) Severity of Pain-Current: moderate Modifying Factors: Improves With: nothing Associated Symptoms: denies symptoms Previous symptoms: same symptoms as today, no recent treatment Allergies/Adverse Reactions: latex Allergy (Severe, Verified 12/12/23 14:33) Swelling morphine Allergy (Severe, Verified 12/12/23 14:33) seizures Home Medications: Omeprazole 40 mg PO DAILY 08/07/19 [History] Oxycodone / APAP 10/325 mg [Oxycodone-Acetaminophen 10-325] 1 each PO Q8H PRN PRN 08/07/19 [History] Montelukast Sodium 10 mg [Singulair 10 MG] 10 mg PO DAILY 04/20/21 [History] Escitalopram Oxalate [Lexapro] 10 mg PO HS 01/15/23 [History] Famotidine 40 mg PO HS 01/15/23 [History] Levothyroxine Sodium [Euthyrox] 75 mcg PO DAILY 01/15/23 [History] Promethazine HCl 25 mg [Phenergan 25 mg] 25 mg PO Q6H PRN PRN 01/15/23 [History] Propranolol HCl [Inderal ] 60 mg PO HS 01/15/23 [History] Spironolactone 25 mg [Aldactone 25 MG] 25 mg PO DAILY 01/15/23 [History] Topiramate 100 mg [Topamax 100 MG] 100 mg PO BID PRN 01/15/23 [History] Zolpidem Tartrate [Ambien Cr] 12.5 mg PO HS 01/15/23 [History] Rosuvastatin Calcium 1 tab PO DAILY 03/22/23 [History] Hx Tetanus, Diphtheria Vaccination/Date Given: Yes Hx Influenza Vaccination/Date Given: No Hx Pneumococcal Vaccination/Date Given: No Travel Risk - International Travel Have you traveled outside of the country in past 3 weeks: No - Coronavirus Screening Are you exhibiting any of the following symptoms?: No Close contact with a COVID-19 positive Pt in past 14-21 Days: No - Vaccine Status Have you recieved a Covid-19 vaccination: No - Review of Systems Constitutional: No Symptoms Eyes: No Symptoms Ears, Nose, & Throat: No Symptoms Respiratory: No Symptoms Cardiac: No Symptoms Abdominal/Gastrointestinal: Abdominal Pain (Bilateral lower quadrants) Genitourinary Symptoms: Flank Pain (Bilateral) Musculoskeletal: No Symptoms Skin: No Symptoms Neurological: No Symptoms Psychological: No Symptoms Endocrine: No Symptoms Hematologic/Lymphatic: No Symptoms Immunological/Allergic: No Symptoms All Other Systems: Reviewed and Negative - Past Medical History Pertinent Past Medical History: Yes Neurological History: Migraines ENT History: No Pertinent History Cardiac History: Deep Vein Thrombosis, High Cholesterol, Hypertension Respiratory History: COPD, Sleep Apnea Endocrine Medical History: Hypothyroidism Musculoskeletal History: Arthritis GI Medical History: Pancreatitis History: No Pertinent History Psycho-Social History: No Pertinent History Female Reproductive Disorders: Endometriosis Other Medical History: factor 5 lieden, protien S, COVID -19 07-23-21 - Past Surgical History Past Surgical History: Yes Neuro Surgical History: No Pertinent History Cardiac: No Pertinent History Respiratory: No Pertinent History Gastrointestinal: Cholecystectomy Genitourinary: Other Musculoskeletal: Orthopedic Surgery Female Surgical History: Other Other Surgical History: urethral - expansion. bilat knee-endo w/ meniscus removed left, repair right. uterine ablation. endometriosis removal twice - Social History Smoking Status: Never smoker How long have you smoked: 8 yrs Exposure to second hand smoke: No Drug Use: none Patient Lives Alone: No () - Nursing Vital Signs Nursing Vital Signs: Initial Vital Signs Temperature 97.8 F 12/12/23 14:34 Pulse Rate 66 12/12/23 14:34 Respiratory Rate 17 12/12/23 14:34 Blood Pressure 115/87 12/12/23 14:34 O2 Sat by Pulse Oximetry 95 01/31/24 14:34 Pain Scale Pain Intensity 10 - Physical Exam General Appearance: no apparent distress, alert, anxiety, obese Eye Exam: PERRL/EOMI, eyes nml inspection Ears, Nose, Throat Exam: normal ENT inspection, moist mucous membranes Neck Exam: normal inspection, non-tender, supple, full range of motion Respiratory Exam: normal breath sounds, lungs clear, airway intact, No chest tenderness, No respiratory distress Cardiovascular Exam: regular rate/rhythm, normal heart sounds, normal peripheral pulses Gastrointestinal/Abdomen Exam: soft, normal bowel sounds, tenderness (Mild bilat eral lower quadrants to palpation), guarding (Mild bilateral lower quadrants to palpation) Pelvic Exam: not done Rectal Exam: not done Back Exam: normal inspection, normal range of motion, CVA tenderness (Bilateral to percussion) Extremity Exam: normal inspection, normal range of motion, pelvis stable Neurologic Exam: alert, oriented x 3, cooperative, department specialist II-XII nml as tested, normal mood/affect, nml cerebellar function, nml station & gait, sensation nml Skin Exam: normal color, warm, dry Lymphatic Exam: No adenopathy SpO2 Interpretation: normal O2 Delivery: Room Air - Course Nursing assessment & vital signs reviewed: Yes Ordered Tests: Active Orders 24 hr Category Date Time Status IV Insertion STAT Care 12/12/23 14:55 Active ABDOMEN AND PELVIS W/0 CONTRAS [CT] Stat Exams 12/12/23 14:55 Completed AMYLASE Stat Lab 12/12/23 14:50 Completed CBC W DIFF Stat Lab 12/12/23 14:50 Completed CMP Stat Lab 12/12/23 14:50 Completed CULTURE,URINE Stat Lab 12/12/23 14:57 Received LIPASE Stat Lab 12/12/23 14:50 Completed UA W/RFX UR CULTURE Stat Lab 12/12/23 14:57 Completed Medication Summary Discontinued Medications Generic Name Dose Route Start Last Admin Trade Name Freq PRN Reason Stop Dose Admin Hydromorphone HCl 1 mg 12/12/23 14:56 12/12/23 16:31 Hydromorphone 1 Mg/1ml Inj IV 12/12/23 14:57 Not Given STAT ONE Sodium Chloride 1,000 mls @ 999 mls/hr 12/12/23 14:55 12/12/23 16:39 Sodium Chloride 0.9% 1000 Ml IV 12/12/23 15:55 Infused .Q1H1M STA Infusion Sodium Chloride Confirm 12/12/23 15:17 Sodium Chloride 0.9% 1000 Ml Administered 12/12/23 15:18 Dose 1,000 mls @ ud .ROUTE .STK-MED ONE Ketorolac Tromethamine 30 mg 12/12/23 14:56 12/12/23 16:31 Ketorolac Tromethamine 30 Mg/Ml Inj IV 12/12/23 14:57 Not Given STAT ONE Ketorolac Tromethamine 30 mg 12/12/23 16:07 12/12/23 16:33 Ketorolac Tromethamine 30 Mg/Ml Inj IV 12/12/23 16:08 30 mg STAT ONE Administration Ketorolac Tromethamine Confirm 12/12/23 16:32 Ketorolac Tromethamine 30 Mg/Ml Inj Administered 12/12/23 16:33 Dose 30 mg .ROUTE .STK-MED ONE Meperidine HCl 25 mg 12/12/23 14:58 12/12/23 15:21 Meperidine Hcl 25 Mg Syringe IV 12/12/23 14:59 25 mg STAT ONE Administration Meperidine HCl Confirm 12/12/23 15:16 Meperidine Hcl 50 Mg/Ml Carp Administered 12/12/23 15:17 Dose 50 mg .ROUTE .STK-MED ONE Meperidine HCl 50 mg 12/12/23 16:07 12/12/23 16:34 Meperidine Hcl 50 Mg/Ml Carp IV 12/12/23 16:08 50 mg STAT ONE Administration Meperidine HCl Confirm 12/12/23 16:32 Meperidine Hcl 50 Mg/Ml Carp Administered 12/12/23 16:33 Dose 50 mg .ROUTE .STK-MED ONE Ondansetron HCl 4 mg 12/12/23 14:55 12/12/23 15:18 Ondansetron Hcl 4 Mg/2 Ml Vial IV 12/12/23 14:56 4 mg STAT ONE Administration Ondansetron HCl Confirm 12/12/23 15:16 Ondansetron Hcl 4 Mg/2 Ml Vial Administered 12/12/23 15:17 Dose 4 mg .ROUTE .STK-MED ONE Lab/Rad Data: Laboratory Result Diagrams 12/12/23 14:50 12/12/23 14:50 Laboratory Results 12/12/23 12/12/23 12/12/23 Range/Units 14:57 14:50 14:50 WBC 7.2 (4.0-10.5) x10^3/uL RBC 4.61 (4.1-5.4) x10^6/uL Hgb 13.2 (12.0-16.0) g/dL Hct 41.8 (35-47) % MCV 90.7 (78-100) fL MCH 28.6 (26-32) pg MCHC 31.6 L (32-36) g/dL RDW 14.2 H (11.5-14.0) % Plt Count 243 (150-450) x10^3/uL MPV 9.8 (7.5-11.0) fL Gran % 52.7 (36.0-66.0) % Immature Gran % (Auto) 0.3 (0.00-0.4) % Nucleat RBC Rel Count 0.0 (0.00-0.1) % Eos # (Auto) 0.21 (0-0.5) x10^3/uL Immature Gran # (Auto) 0.02 (0.00-0.03) x10^3u/L Absolute Lymphs (auto) 2.50 (1.0-4.6) x10^3/uL Absolute Monos (auto) 0.65 (0.0-1.3) x10^3/uL Absolute Nucleated RBC 0.00 (0.00-0.01) x10^3u/L Lymphocytes % 34.5 (24.0-44.0) % Monocytes % 9.0 (0.0-12.0) % Eosinophils % 2.9 (0.00-5.0) % Basophils % 0.6 (0.0-0.4) % Absolute Granulocytes 3.82 (1.4-6.9) x10^3/uL Basophils # 0.04 (0-0.4) x10^3/uL Sodium 135 L (137-145) mmol/L Potassium 4.2 (3.5-5.1) mmol/L Chloride 100 (98-107) mmol/L Carbon Dioxide 27 (22-30) mmol/L Anion Gap 12.1 (5-15) MEQ/L BUN 16 (7-17) mg/dL Creatinine 0.63 (0.52-1.04) mg/dL Estimated GFR 106.7 ML/MIN Glucose 112 H (74-106) mg/dL Calcium 9.2 (8.4-10.2) mg/dL Total Bilirubin 1.20 (0.2-1.3) mg/dL AST 54 H (14-36) U/L ALT 43 H (0-35) U/L Alkaline Phosphatase 92 (38-126) U/L Serum Total Protein 7.3 (6.3-8.2) g/dL Albumin 4.2 (3.5-5.0) g/dL Amylase 120 H (30-110) U/L Lipase 692 H (23-300) U/L Urine Color Dark Yellow A (Yellow) Urine Appearance Clear (Clear) Urine pH 5.5 (4.6-8.0) Ur Specific [place] >=1.030 A (1.005-1.030) Urine Protein Negative (Negative) Urine Glucose (UA) Negative (Negative) mg/dL Urine Ketones Trace A (Negative) Urine Blood Negative (Negative) Urine Nitrite Negative (Negative) Urine Bilirubin Negative (Negative) Urine Urobilinogen 1.0 A (0.2) mg/dL Ur Leukocyte Esterase Trace A (Negative) U Hyaline Cast (Auto) NONE SEEN (0-2) /LPF Urine Microscopic RBC 0-2 (0-5) /HPF Urine Microscopic WBC 11-20 A (0-5) /HPF Ur Epithelial Cells Few (None Seen) /HPF Urine Bacteria Many A (None Seen) /HPF Urine Culture Reflexed YES (NO) - Progress Progress Note: 12/12/23 15:22 This patient's medical issue is 1 of moderate complexity. The level complexity in the workup performed is based on review of the patient's past medical history, review of the patient's medication list, review of the patient's drug allergy list, history present illness and physical findings on examination. This patient workup includes placement of an intravenous line, infusion of normal saline solution, infusion of Demerol intravenously (patient has had this medication in the past) urinalysis, CBC, CMP, amylase, lipase, CT scan of the abdomen pelvis without contrast. 12/12/23 16:06 Reexamination of the patient states shoulder still uncomfortable but not as bad as when she came in. She states this feels exactly like the time she had ureteral stone on the left side in the past. Patient is prescribed Toradol but she has not taken it today. We will give her a single dose of Toradol. 12/12/23 16:47 I interpreted the patient's laboratory data results. Patient has a mild urinary tract infection. No other acute, emergent medical issue based on the lab oratory data results. CT scan of the abdomen pelvis without contrast was interpreted by the radiolo gist and I reviewed the impression. Patient has a normal appendix. There is no free air or free fluid present. There is diffuse fecal stasis present with mild rectal impaction. There is stable, nonobstructing left renal micro calculus present. Counseled pt/family regarding: lab results, diagnosis, need for follow-up, rad results Medical Desision Making - Diagnostic Testing Diagnostic test were ordered, analyzed, and reviewed by me: Yes Radiological Interpretation: Reviewed by me, Teleradiologist Report - Risk of complications Minimal Risk: Minimal risk of morbidity - Departure Departure Disposition: Home Clinical Impression: Abdominal pain, Constipation, Urinary tract infection Condition: Stable Critical Care Time: No Referrals: KELL ANDREWS, DAFNE [Primary Care Provider] - Follow up/PCP as directed Additional Instructions: Drink plenty of clear liquids. Use daily MiraLAX as prescribed on the package. May also use milk of magnesia if there are no contraindications to do so. May use glycerin suppositories rectally per the instructions on the package. May also use fleets enema rectally per package instructions. Take your antibiotics and other medications as prescribed. Call your primary care provider tomorrow, 12/13/2023, to make arrangements for follow-up appointment next 3 to 5 days. Prescriptions: Ciprofloxacin [Cipro 500 MG] 500 mg PO BID #14 tablet
[2023-12-12 14:38] VITALS: TEMP 97.8
[2023-12-12] MEDS ORDERED: Sodium Chloride 0.9% 1000 ML 1,000 ML IV STA (14:55)
[2023-12-12] MEDS ORDERED: Zofran 4 MG/2 ML VIAL IV ONE (14:55)
[2023-12-12] MEDS ORDERED: TORAdol 30 mg Injection IV ONE ×2 (14:56→16:07)
[2023-12-12] MEDS ORDERED: Hydromorphone 1 mg/ml Injection IV ONE (14:56)
[2023-12-12] MEDS ORDERED: DEMEROL 25MG SYRINGE IV ONE (14:58)
[2023-12-12] MEDS ORDERED: DEMEROL 50 MG ONE ×2 (15:16→16:32)
[2023-12-12] MEDS ORDERED: Zofran 4 MG/2 ML VIAL ONE (15:16)
[2023-12-12] MEDS ORDERED: Sodium Chloride 0.9% 1000 ML 1,000 ML ONE (15:17)
[2023-12-12 15:19] LABS: Appearance Clear (Clear); Bacteria Many /HPF (None Seen); Bilirubin Negative (Negative); Blood Negative (Negative); Epithelial Cells Few /HPF (None Seen); Glucose, Urine Negative (Negative); Hyaline Casts NONE SEEN /LPF (0-2); Ketones Trace (Negative); Leukocyte Esterase Trace (Negative); Nitrite Negative (Negative); Ph 5.5 (4.6-8.0); Protein,Urine Dip Negative (Negative); RBC 0-2 /HPF (0-5); Specific Gravity >=1.030 (1.005-1.030)
[2023-12-12 15:21] LABS: Absolute Neutrophil Ct (ANC) 3.82 x10^3/uL (1.4-6.9); BASOPHIL % 0.6 % (0.0-0.4); Basophil (Absolute #) 0.04 x10^3/uL (0-0.4); Eosinophil % 2.9 % (0.00-5.0); Eosinophil (Absolute #) 0.21 x10^3/uL (0-0.5); Hematocrit 41.8 % (35-47); Hemoglobin 13.2 g/dL (12.0-16.0); IMMATURE GRAN # 0.02 x10^3u/L (0.00-0.03); IMMATURE GRAN % 0.3 % (0.00-0.4); Lymphocytes % 34.5 % (24.0-44.0); Mean Cell Volume 90.7 fL (78-100); Mean Corpuscular Hemoglobin 28.6 pg (26-32); Mean Corpuscular Hgb Concent. 31.6 g/dL (32-36); Mean Platelet Volume 9.8 fL (7.5-11.0); Monocyte (Absolute #) 0.65 x10^3/uL (0.0-1.3); Neutrophil % 52.7 % (36.0-66.0); Platelet Count 243 x10^3/uL (150-450); Red Blood Count 4.61 x10^6/uL (4.1-5.4); Red Cell Distribution Width 14.2 % (11.5-14.0); White Blood Count 7.2 x10^3/uL (4.0-10.5)
[2023-12-12 15:21] LABS: ADD URINE CULTURE? YES (NO)
[2023-12-12 15:43] LABS: ALBUMIN 4.2 g/dL (3.5-5.0); ANION GAP 12.1 MEQ/L (5-15); BILIRUBIN,TOTAL 1.2 mg/dL (0.2-1.3); Calcium 9.2 mg/dL (8.4-10.2); Creatinine 1 0.63 mg/dL (0.52-1.04); EST GLOMERULAR FILTRATION RATE 106.7 ML/MIN; Potassium 4.2 mmol/L (3.5-5.1); Total Protein 7.3 g/dL (6.3-8.2)
[2023-12-12] MEDS ORDERED: DEMEROL 50 MG IV ONE (16:07)
--- NOTE | 2023-12-12 16:21 | XRAY ---
Indication: Bilateral flank pain. Multiple contiguous axial images obtained through the abdomen and pelvis without contrast using renal stone protocol. Comparison: March 22, 2023. Lung bases remain clear. Heart not enlarged. Left lower kidney again demonstrates 2-3 mm nonobstructing calculus. No other renal calculus or evidence for obstructive uropathy in either system. Stomach is markedly distended with food. Noncontrasted stomach and bowel loops appear nonobstructed again with normal appendix. There is now moderate diffuse scattered colonic fecal debris throughout with mild rectal impaction. Again cholecystectomy. No free fluid/air. Remaining liver, pancreas, spleen, adrenal glands, kidneys, ureters, bladder, uterus, and aorta are unremarkable for noncontrast exam. Osseous structures intact. Impression: 1. Stable nonobstructing left renal micro-calculus. 2. New moderate diffuse fecal stasis with mild rectal impaction. 3. Remaining CT abdomen/pelvis without contrast exam continues to be negative.
[2023-12-12] MEDS ORDERED: TORAdol 30 mg Injection ONE (16:32)
[2023-12-12 17:14] VITALS: BP 100/43; PULSE 72; RESP 16; O2SAT 96
== END 2023-12-12 17:14 | disposition home or self-care (01) ==
LOC: ED 13:44
DX: K59.00 Constipation, unspecified (principal); N39.0 Urinary tract infection, site not specified; R10.31 Right lower quadrant pain; R10.32 Left lower quadrant pain; R10.9 Unspecified abdominal pain; E78.5 Hyperlipidemia, unspecified; I10 Essential (primary) hypertension; Z79.899 Other long term (current) drug therapy; Z28.310 Unvaccinated for COVID-19; Z86.16 Personal history of COVID-19
CPT/HCPCS: 36000; 36415; 74176; 80053; 81001; 82150; 83690; 85025; 87077; 87086; 87186; 96360; 96374; 96375; 96376; 99284; J1885; J2175; J2405

== ENCOUNTER 2024-02-19 18:46 | Emergency (ER) | payer BC ==
[2024-02-19 19:06] VITALS: TEMP 97.9
--- NOTE | 2024-02-19 20:10 | ERPHSYRPT ---
- History of Present Illness Time Seen by Provider: 02/19/24 19:30 Source: patient Exam Limitations: no limitations Patient Subjective Stated Complaint: pt states that she fell on the concrete patio Triage Nursing Assessment: pt came into the er; pt is axo x3; c/o left upper arm pain; pt states 10/10 to LUE; no deformity present to LUE; pt is holding up LUE across chest; pt is screaming, yelling, crying; strong left radial pulse; good cap refill to LUE; skin PDW; no respiratory distress; vital wnl Physician History: Patient is a 53-year-old female presents to our ED for evaluation of pain to her left shoulder and left humerus left forearm. Patient states she tripped over her dog today. Injury occurred just prior to arrival. Pain described as an ache that is localized. No radiation. No chest pain or shortness of breath. No nausea vomiting or diaphoresis. Symptoms are mild to moderate in intensity. No BHT or LOC. No neck pain. Cervical spine cleared clinically. Patient voices no other complaints or concerns at this time. Portions of this note were created with voice recognition technology. There may be grammatical, spelling, punctuation or sound alike errors Allergies/Adverse Reactions: latex Allergy (Severe, Verified 02/19/24 18:57) Swelling morphine Allergy (Severe, Verified 02/19/24 18:57) seizures Home Medications: Omeprazole 40 mg PO DAILY 08/07/19 [History] Oxycodone / APAP 10/325 mg [Oxycodone-Acetaminophen 10-325] 1 each PO Q8H PRN PRN 08/07/19 [History] Montelukast Sodium 10 mg [Singulair 10 MG] 10 mg PO DAILY 04/20/21 [History] Escitalopram Oxalate [Lexapro] 10 mg PO HS 01/15/23 [History] Famotidine 40 mg PO HS 01/15/23 [History] Levothyroxine Sodium [Euthyrox] 75 mcg PO DAILY 01/15/23 [History] Promethazine HCl 25 mg [Phenergan 25 mg] 25 mg PO Q6H PRN PRN 01/15/23 [History] Propranolol HCl [Inderal ] 60 mg PO HS 01/15/23 [History] Spironolactone 25 mg [Aldactone 25 MG] 25 mg PO DAILY 01/15/23 [History] Topiramate 100 mg [Topamax 100 MG] 100 mg PO BID PRN 01/15/23 [History] Zolpidem Tartrate [Ambien Cr] 12.5 mg PO HS 01/15/23 [History] Rosuvastatin Calcium 1 tab PO DAILY 03/22/23 [History] Hx Tetanus, Diphtheria Vaccination/Date Given: Yes Hx Influenza Vaccination/Date Given: No Hx Pneumococcal Vaccination/Date Given: No Travel Risk - International Travel Have you traveled outside of the country in past 3 weeks: No - Emerging Infectious Disease Are you exhibiting symptoms associated with any current EIDs: No - Past Medical History Pertinent Past Medical History: Yes Neurological History: Migraines ENT History: No Pertinent History Cardiac History: Deep Vein Thrombosis, High Cholesterol, Hypertension Respiratory History: COPD, Sleep Apnea Endocrine Medical History: Hypothyroidism Musculoskeletal History: Arthritis GI Medical History: Pancreatitis History: No Pertinent History Psycho-Social History: No Pertinent History Female Reproductive Disorders: Endometriosis Other Medical History: factor 5 lieden, protien S, COVID -19 07-23-21 - Past Surgical History Past Surgical History: Yes Neuro Surgical History: No Pertinent History Cardiac: No Pertinent History Respiratory: No Pertinent History Gastrointestinal: Cholecystectomy Genitourinary: Other Musculoskeletal: Orthopedic Surgery Female Surgical History: Other Other Surgical History: urethral - expansion. bilat knee-endo w/ meniscus removed left, repair right. uterine ablation. endometriosis removal twice - Female History Hx Now: No - Social History Smoking Status: Smoker, status unknown How long have you smoked: 8 yrs Exposure to second hand smoke: No Drug Use: none Patient Lives Alone: No () - Nursing Vital Signs Nursing Vital Signs: Initial Vital Signs Temperature 97.9 F 02/19/24 18:57 Pulse Rate 74 02/19/24 18:57 Respiratory Rate 18 02/19/24 18:57 Blood Pressure 113/83 02/19/24 18:57 O2 Sat by Pulse Oximetry 97 02/19/24 18:57 Pain Scale Pain Intensity 10 - Physical Exam SpO2: 99 Ordered Tests: Active Orders 24 hr Category Date Time Status FOREARM Stat Exams 02/19/24 20:02 Ordered HUMERUS Stat Exams 02/19/24 20:04 Ordered SHOULDER Stat Exams 02/19/24 20:04 Ordered Medication Summary Discontinued Medications Generic Name Dose Route Start Last Admin Trade Name Mak PRN Reason Stop Dose Admin Ketorolac Tromethamine 30 mg 02/19/24 20:01 Ketorolac Tromethamine 30 Mg/Ml Inj IV 02/19/24 20:02 STAT ONE - Departure Referrals: KELL ANDREWS NP [Primary Care Provider] - Follow up/PCP as directed
[2024-02-19] MEDS ORDERED: TORAdol 30 mg Injection ONE (20:14)
--- NOTE | 2024-02-19 20:15 | ERPHSYRPT ---
- History of Present Illness Time Seen by Provider: 02/19/24 19:30 Exam Limitations: no limitations Patient Subjective Stated Complaint: pt states that she fell on the concrete patio Triage Nursing Assessment: pt came into the er; pt is axo x3; c/o left upper arm pain; pt states 10/10 to LUE; no deformity present to LUE; pt is holding up LUE across chest; pt is screaming, yelling, crying; strong left radial pulse; good cap refill to LUE; skin PDW; no respiratory distress; vital wnl Physician History: Patient is a 53-year-old female presents to our ED for evaluation of pain to her left shoulder and left humerus left forearm. Patient states she tripped over her dog today. Injury occurred just prior to arrival. Pain described as an ache that is localized. No radiation. No chest pain or shortness of breath. No nausea vomiting or diaphoresis. Symptoms are mild to moderate in intensity. No BHT or LOC. No neck pain. Cervical spine cleared clinically. Patient voices no other complaints or concerns at this time. Portions of this note were created with voice recognition technology. There may be grammatical, spelling, punctuation or sound alike errors Occurred: just prior to arrival Method of Injury: fell Quality: constant Severity of Pain-Max: moderate Severity of Pain-Current: mild Extremities Pain Location: shoulder: left, arm: left, forearm: left Modifying Factors: Improves With: nothing Associated Symptoms: none Allergies/Adverse Reactions: latex Allergy (Severe, Verified 02/19/24 18:57) Swelling morphine Allergy (Severe, Verified 02/19/24 18:57) seizures Home Medications: Omeprazole 40 mg PO DAILY 08/07/19 [History] Oxycodone / APAP 10/325 mg [Oxycodone-Acetaminophen 10-325] 1 each PO Q8H PRN PRN 08/07/19 [History] Montelukast Sodium 10 mg [Singulair 10 MG] 10 mg PO DAILY 04/20/21 [History] Escitalopram Oxalate [Lexapro] 10 mg PO HS 01/15/23 [History] Famotidine 40 mg PO HS 01/15/23 [History] Levothyroxine Sodium [Euthyrox] 75 mcg PO DAILY 01/15/23 [History] Promethazine HCl 25 mg [Phenergan 25 mg] 25 mg PO Q6H PRN PRN 01/15/23 [History] Propranolol HCl [Inderal ] 60 mg PO HS 01/15/23 [History] Spironolactone 25 mg [Aldactone 25 MG] 25 mg PO DAILY 01/15/23 [History] Topiramate 100 mg [Topamax 100 MG] 100 mg PO BID PRN 01/15/23 [History] Zolpidem Tartrate [Ambien Cr] 12.5 mg PO HS 01/15/23 [History] Rosuvastatin Calcium 1 tab PO DAILY 03/22/23 [History] Hx Tetanus, Diphtheria Vaccination/Date Given: Yes Hx Influenza Vaccination/Date Given: No Hx Pneumococcal Vaccination/Date Given: No Travel Risk - International Travel Have you traveled outside of the country in past 3 weeks: No - Emerging Infectious Disease Are you exhibiting symptoms associated with any current EIDs: No - Review of Systems Constitutional: No Symptoms, No Fever, No Chills Eyes: No Symptoms Ears, Nose, & Throat: No Symptoms Respiratory: No Symptoms, No Cough, No Dyspnea Cardiac: No Symptoms, No Chest Pain, No Edema, No Syncope Abdominal/Gastrointestinal: No Symptoms, No Abdominal Pain, No Nausea, No Vomiting, No Diarrhea Genitourinary Symptoms: No Symptoms, No Dysuria Musculoskeletal: No Symptoms, No Back Pain, No Neck Pain Skin: No Symptoms, No Rash Neurological: No Symptoms, No Dizziness, No Focal Weakness, No Sensory Changes Psychological: No Symptoms Endocrine: No Symptoms Hematologic/Lymphatic: No Symptoms Immunological/Allergic: No Symptoms All Other Systems: Reviewed and Negative - Past Medical History Pertinent Past Medical History: Yes Neurological History: Migraines ENT History: No Pertinent History Cardiac History: Deep Vein Thrombosis, High Cholesterol, Hypertension Respiratory History: COPD, Sleep Apnea Endocrine Medical History: Hypothyroidism Musculoskeletal History: Arthritis GI Medical History: Pancreatitis History: No Pertinent History Psycho-Social History: No Pertinent History Female Reproductive Disorders: Endometriosis Other Medical History: factor 5 liedenvitaly S, COVID -19 07-23-21 - Past Surgical History Past Surgical History: Yes Neuro Surgical History: No Pertinent History Cardiac: No Pertinent History Respiratory: No Pertinent History Gastrointestinal: Cholecystectomy Genitourinary: Other Musculoskeletal: Orthopedic Surgery Female Surgical History: Other Other Surgical History: urethral - expansion. bilat knee-endo w/ meniscus removed left, repair right. uterine ablation. endometriosis removal twice - Female History Hx Now: No - Social History Smoking Status: Smoker, status unknown How long have you smoked: 8 yrs Exposure to second hand smoke: No Drug Use: none Patient Lives Alone: No () - Nursing Vital Signs Nursing Vital Signs: Initial Vital Signs Temperature 97.9 F 02/19/24 18:57 Pulse Rate 74 02/19/24 18:57 Respiratory Rate 18 02/19/24 18:57 Blood Pressure 113/83 02/19/24 18:57 O2 Sat by Pulse Oximetry 97 02/19/24 18:57 Pain Scale Pain Intensity 10 - Physical Exam General Appearance: no apparent distress, alert Eyes, Ears, Nose, Throat Exam: moist mucous membranes Neck Exam: normal inspection, non-tender, supple Cardiovascular/Respiratory Exam: chest non-tender, normal breath sounds, regular rate/rhythm, no respiratory distress Abdominal Exam: non-tender, No guarding Back Exam: normal inspection, No vertebral tenderness Shoulder Exam: normal inspection, non-tender, no evidence of injury Elbow/Forearm Exam: normal inspection Wrist Exam: normal inspection, non-tender, no evidence of injury, normal ROM Hand Exam: normal inspection, non-tender, no evidence of injury, normal ROM Neuro/Tendon Exam: normal sensation, normal motor functions Mental Status Exam: alert, oriented x 3, cooperative Skin Exam: normal color, warm, dry SpO2 Interpretation: normal SpO2: 99 O2 Delivery: Room Air - Course Nursing assessment & vital signs reviewed: Yes Ordered Tests: Active Orders 24 hr Category Date Time Status FOREARM Stat Exams 02/19/24 20:02 Taken HUMERUS Stat Exams 02/19/24 20:04 Taken RIBS UNILATERAL Stat Exams 02/19/24 20:51 Taken SHOULDER Stat Exams 02/19/24 20:04 Taken Medication Summary Discontinued Medications Generic Name Dose Route Start Last Admin Trade Name Freq PRN Reason Stop Dose Admin Dexamethasone Sodium Phosphate 8 mg 02/19/24 21:34 02/19/24 21:40 Dexamethasone Sod Phosphate 10 Mg/Ml IM 02/19/24 21:35 8 mg STAT ONE Administration Dexamethasone Sodium Phosphate Confirm 02/19/24 21:39 Dexamethasone Sod Phosphate 10 Mg/Ml Administered 02/19/24 21:40 Dose 10 mg .ROUTE .STK-MED ONE Ketorolac Tromethamine 30 mg 02/19/24 20:01 02/19/24 20:18 Ketorolac Tromethamine 30 Mg/Ml Inj IV 02/19/24 20:02 Not Given STAT ONE Ketorolac Tromethamine Confirm 02/19/24 20:14 Ketorolac Tromethamine 30 Mg/Ml Inj Administered 02/19/24 20:15 Dose 30 mg .ROUTE .STK-MED ONE Ketorolac Tromethamine 30 mg 02/19/24 20:18 02/19/24 20:19 Ketorolac Tromethamine 30 Mg/Ml Inj IM 02/19/24 20:19 30 mg STAT ONE Administration - Progress Progress: improved Progress Note: 53-year-old female presents emergency department for evaluation of left arm pain. Patient fell at home. Physical exam reveals pain at her left shoulder left humerus left forearm. Patient requested x-rays of her left shoulder. Dr. Velasquez read the x-rays no obvious fractures or dislocations. Patient received Toradol and Decadron for pain. Patient placed in a shoulder sling and referred to orthopedics. Patient is involved extremities neurovascular tact distally compartments are soft cap refill less than 2 seconds. Plan of care discussed with patient. She agrees to follow-up as planned. She voices no other complaints or concerns at this time. Portions of this note were created with voice recognition technology. There may be grammatical, spelling, punctuation or sound alike errors Complexity problem addressed is moderate acute complicated No critical care time Complaints of data reviewed and analyzed is moderate. Dr. Velasquez independently reviewed the x-rays. Risk of complication and or risk morbidity/mortality patient management is moderate Vital stable. Time spent to discharge patient's 10 minutes. Plan of care established for shared decision making. No social determinants of health present impede follow-up. Portions of this note were created with voice recognition technology. There may be grammatical, spelling, punctuation or sound alike errors 02/19/24 21:58 Counseled pt/family regarding: diagnosis, need for follow-up, rad results - Departure Departure Disposition: Home Clinical Impression: Fall, Shoulder strain, Arm pain Condition: Stable Critical Care Time: No Referrals: KELL ANDREWS NP [Primary Care Provider] - Follow up/PCP as directed Additional Instructions: Discharge/Care Plan MINI RAJAN was seen on 02/19/24 in the Emergency Room. The patient was counseled regarding Diagnosis,Lab results, Imaging studies, need for follow up and when to return to the Emergency Room. Prescriptions given: Discharge Note I have spoken with the patient and/or caregivers. I have explained the patient's condition, diagnosis and treatment plan based on the information available to me at this time. I have answered the patient's and/or caregiver's questions and addressed any concerns. The patient and/or caregivers have as good understanding of the patient's diagnosis, condition and treatment plan as can be expected at this point. The vital signs have been stable. The patient's condition is stable and appropriate for discharge from the emergency department. The patient will pursue further outpatient evaluation with the primary care physician or other designated or consulting physician as outlined in the discharge instructions. The patient and/or caregivers are agreeable to this plan of care and follow-up instructions have been explained in detail. The patient and/or caregivers have received these instruction. The patient/and or caregivers are aware that any significant change in condition or worsening of symptoms should prompt an immediate return to this or the closest emergency department or call 911. Outpatient Orders: Ortho Referral Time Frame: 1 Day, Facility: [facility]. Hosp, Location: [facility]
[2024-02-19] MEDS: TORAdol 30 mg Injection IV ONE (20:18)
[2024-02-19] MEDS: TORAdol 30 mg Injection IM ONE (20:19)
[2024-02-19] MEDS ORDERED: DECADRON 10MG INJ. ONE (21:39)
[2024-02-19] MEDS: DECADRON 10MG INJ. IM ONE (21:40)
[2024-02-19 22:02] VITALS: BP 127/78; PULSE 78; RESP 20; O2SAT 99
--- NOTE | 2024-02-20 08:57 | XRAY ---
Indication: Pain following fall. Comparison: None 2 view left ribs demonstrates minimal degenerative changes throughout spine and left acromioclavicular joint. No other bony, articular, or soft tissue abnormalities.
--- NOTE | 2024-02-20 08:59 | XRAY ---
Indication: Pain following fall. Comparison: None 3 view left shoulder demonstrates minimal acromioclavicular degenerative changes. No other bony, articular, or soft tissue abnormalities.
--- NOTE | 2024-02-20 08:59 | XRAY ---
Indication: Pain following fall. Comparison: None 2 view left forearm demonstrates moderate 1st metacarpal multangular degenerative changes. No other bony, articular, or soft tissue abnormalities.
--- NOTE | 2024-02-20 09:01 | XRAY ---
Indication: Pain following fall. Comparison: None 2 view left humerus demonstrates minimal acromioclavicular degenerative changes and incomplete union ossification center medial epicondyle. No other bony, articular, or soft tissue abnormalities.
== END 2024-02-19 22:12 | disposition home or self-care (01) ==
LOC: ED 18:46
DX: S46.912A Strain of unspecified muscle, fascia and tendon at shoulder and upper arm level, left arm, initial encounter (principal); W01.0XXA Fall on same level from slipping, tripping and stumbling without subsequent striking against object, initial encounter; M79.622 Pain in left upper arm; E78.5 Hyperlipidemia, unspecified; I10 Essential (primary) hypertension; Z79.899 Other long term (current) drug therapy; Z86.16 Personal history of COVID-19
CPT/HCPCS: 71100; 73030; 73060; 73090; 96372; 99284; J1100; J1885; L3650

== ENCOUNTER 2025-08-28 05:52 | Day surgery (SDC) | payer BC ==
[2025-08-28] MEDS ORDERED: CEFAZOLIN SODIUM ONE (06:06)
[2025-08-28] MEDS: NEURONTIN PO ONE (06:10)
[2025-08-28] MEDS: Pepcid 20 MG PO ONE (06:10)
[2025-08-28] MEDS: TYLENOL EXTRA STRENGTH 500 MG PO ONE (06:11)
[2025-08-28] MEDS: celeBREX 100 MG PO ONE (06:11)
[2025-08-28] MEDS: Decadron 4 MG PO ONE (06:11)
[2025-08-28] MEDS: TRANEXAMIC 1,000 MG/100ML-NACL 1,000 MG/100 ML PIGGYBACK IV ONE (06:12)
[2025-08-28] MEDS: Lactated Ringers 1,000 ML IV SCH (06:13)
[2025-08-28] MEDS ORDERED: Zofran 4 MG/2 ML VIAL ONE (07:46)
[2025-08-28] MEDS ORDERED: propofoL IV ONE (07:46)
[2025-08-28] MEDS ORDERED: Versed 2 MG/2 ML Injection ONE (07:46)
[2025-08-28] MEDS ORDERED: Xylocaine-Mpf 2% 5 Ml Vial ONE (07:46)
[2025-08-28] MEDS ORDERED: SUBLIMAZE 100 MCG/2 ML ONE ×2 (07:46→11:07)
[2025-08-28] MEDS ORDERED: Marcaine 0.5%/Epinephrine 10 ML ONE (07:53)
[2025-08-28] MEDS ORDERED: Ephedrine Sulfate 50 MG/ML ONE (08:40)
[2025-08-28] MEDS ORDERED: DILAUDID 0.5 MG/0.5 ML SYRINGE ONE (10:54)
--- NOTE | 2025-08-28 11:13 | XRAY ---
Indication: Postop exam. Comparison: April 21, 2025 Portable AP/cross-table lateral right knee now demonstrates medial hemiarthroplasty with postoperative soft tissue swelling/emphysema and effusion. Stable osteopenia. No other bony, articular, or soft tissue abnormalities.
[2025-08-28] MEDS ORDERED: PROVENTIL 2.5 MG/3 ML NEB IH PRN (12:40)
[2025-08-28] MEDS ORDERED: VENTOLIN COMMON CANISTER IH PRN (13:29)
[2025-08-28] MEDS ORDERED: SCOPOLAMINE TD SCH (13:30)
[2025-08-28] MEDS ORDERED: NON-FORMULARY ITEM (Tirzepatide [Mounjaro] 5 MG/0.5 ML Pen.Injctr) SQ SCH (13:30)
[2025-08-28] MEDS: Oxy-IR 5 MG PO PRN (13:37)
[2025-08-28] MEDS ORDERED: Transderm Scop 1.5MG Patch TOP PRN (13:44)
[2025-08-28] MEDS ORDERED: MEDICATION INTERVENTION MC SCH ×3 (14:00)
[2025-08-28] MEDS: HUMALOG SQ PRN (16:00)
[2025-08-28] MEDS: NEURONTIN PO SCH (16:00)
[2025-08-28] MEDS: Hydromorphone 1 mg/ml Injection IV PRN (16:17)
[2025-08-28] MEDS ORDERED: Advair Hfa 230/21 Mcg COMMON CANISTER IH SCH (19:00)
[2025-08-28] MEDS: ZOCOR 20MG PO SCH (21:30)
[2025-08-28] MEDS: Inderal PO SCH (21:31)
[2025-08-28] MEDS: PHENERGAN 25 MG PO PRN (21:31)
[2025-08-28] MEDS: Ambien 10 MG PO SCH (21:31)
[2025-08-28] MEDS ORDERED: NON-FORMULARY ITEM (Rosuvastatin Calcium [Rosuvastatin Calcium] 40 MG Tablet) PO SCH (22:00)
[2025-08-28] MEDS ORDERED: ZOLPIDEM TARTRATE 12.5 MG PO SCH (22:00)
[2025-08-28] MEDS ORDERED: TORAdol 10 MG TABLET PO PRN (22:00)
[2025-08-28] MEDS ORDERED: ADVAIR 500-50 DISKUS IH SCH (22:00)
[2025-08-28] MEDS ORDERED: NON-FORMULARY ITEM (Progesterone, Micronized [Progesterone] 200 MG Capsule) PO SCH (22:00)
[2025-08-28] MEDS: Ecotrin 325 MG PO SCH (23:10)
[2025-08-29 06:37] LABS: Hematocrit 39.0 % (34.1-44.9); Hemoglobin 12.3 g/dL (11.2-15.7); Mean Corpuscular Hemoglobin 30.5 pg (25.6-32.2); Mean Corpuscular Hgb Concent. 31.5 g/dL (32.2-35.5); Platelet Count 242 x10^3/uL (182-369); Red Blood Count 4.03 x10^6/uL (3.93-5.22); White Blood Count 14.9 x10^3/uL (3.98-10.04)
[2025-08-29 07:27] VITALS: PULSE 75; O2SAT 94
[2025-08-29] MEDS: ZOFRAN ODT 4 MG PO PRN (07:34)
[2025-08-29] MEDS: Cymbalta 30 MG Capsule PO SCH (07:56)
[2025-08-29] MEDS: LASIX 20 MG PO SCH (07:58)
[2025-08-29] MEDS: Aldactone 25 MG PO SCH (07:58)
[2025-08-29] MEDS: Robaxin PO PRN (08:15)
[2025-08-29 08:30] VITALS: BP 108/59; RESP 20; TEMP 97.5
[2025-08-29] MEDS: Klor Con PO SCH (09:37)
[2025-08-29] MEDS ORDERED: NON-FORMULARY ITEM (Duloxetine Hcl [Duloxetine Hcl] 60 MG Capsule.Dr) PO SCH (10:00)
[2025-08-29] MEDS ORDERED: NON-FORMULARY ITEM (Aripiprazole [Aripiprazole] 2 MG Tablet) PO SCH (10:00)
[2025-08-29] MEDS ORDERED: NON-FORMULARY ITEM (Potassium Chloride [Potassium Chloride] 20 MEQ Tablet.Er) PO SCH (10:00)
[2025-08-30] MEDS ORDERED: VITAMIN D2 PO SCH (10:00)
--- NOTE | 2025-08-31 08:09 | OP ---
SURGERY DATE/TIME: 08/28/2025 [id number] PREOPERATIVE DIAGNOSIS: Osteoarthritis, right knee. POSTOPERATIVE DIAGNOSIS: Osteoarthritis, right knee. PROCEDURE: Poneto alcides-replacement arthroplasty of the left knee, utilizing the [employer] Poneto instrumentation, a size medium femoral component cemented, a size B tibial component cemented, and a 6 mm polyethylene mobile bearing tray. SURGEON: Aba Valle II, DO ANESTHESIA: Spinal with block for postop pain control. DESCRIPTION OF PROCEDURE AND FINDINGS: The patient was identified, and informed consent was obtained. The patient was taken to the operative suite and placed in the supine position on the operating table after the spinal anesthetic had been administered. The block was administered in preop holding. Once an appropriate level of anesthesia had been obtained, a tourniquet was placed high on the right thigh. The right lower extremity was then prepped and draped in the usual sterile fashion and placed into the Curtis knee robins. A standard time-out was taken. The leg was then exsanguinated and the tourniquet was elevated to 350 mmHg. A standard midline incision was accomplished. Skin was incised. Dissection was carried out through subcutaneous tissue. With a fresh #10 blade, a standard medial parapatellar incision was accomplished. Upon entering the joint, copious amount of grade 1 synovial fluid was encountered as was a loose body. The patient was noted to have severe degenerative changes on the medial femoral condyle and tibial plateau. There were no degenerative changes noted on the lateral femoral condyle or tibial plateau. Some very minimal chondromalacia noted on the patella. At this point, anterior cruciate ligament was inspected and noted to be intact. Patient was then deemed to be a good candidate for proceeding with alcides-replacement arthroplasty. Following this, a portion of the infrapatellar fat pad and medial meniscus was excised for visualization. A Z retractor was positioned and a rake was utilized on the patella. A Z retractor along the medial edge. At this point, the femoral guide was then placed and the drill holes were then accomplished. The posterior cutting block was applied and the posterior cut was accomplished. Guide was removed and at this point, the milling guide was used and a 0 spigot was utilized to mill the distal femur. Collars of bone were removed with an osteotome and with rongeurs. At this point, our attention was now turned to the tibial side where the tibial-aiming guide was placed and held with its pins. The vertical cut was then made with the reciprocating saw and the proximal wafer of tibia was then removed, after utilizing the oscillating saw. At this point, the trial femoral component was applied as was the trial tibial tray. The 1 mm paddle did not want to fit with the tibial tray, thus the tibia was recut and at this point, trials were replaced and the 5 mm paddle fit very nicely in flexion. The 1 mm paddle fit in extension. At this point, the #4 spigot was utilized to resect the remaining portion of distal femur. At this point, after the collars of bone had been removed and the milling device for the anterior femur had been utilized, the trial reduction showed that the 5 to 6 mm paddle fit very nicely in flexion and the 5 mm paddle fit in extension. At this point, drill holes were made in the femur for the interdigitation of the cement. The nail was utilized to hold the trial tibial component in place such that the toothbrush cutting device could be utilized to create the keel for the keel in the component. The joint was then copiously irrigated, and any fragments of bone or soft tissue that were impinging were removed. The cement was then vacuum mixed. The tibial component was then cemented into position and impacted into place with the keel component. The excess cement was removed during the curing process. The femoral component was cemented into position, and excess cement removed. The 6 mm paddle was then placed and the knee was held with 45 degrees of flexion until the cement had fully cured. Once the cement had fully cured, trial reduction with the dish component again showed that the size 6 component was the appropriate size to give good soft tissue balance in flexion as well as extension. The wound was then irrigated and the #6 mobile bearing poly was then inserted with digital pressure from the paper cap machine operator. The knee was placed through a range of motion and excellent motion was noted. The wound was then copiously irrigated with a pulse automatic buffing wheel former and closed with #2 Stratafix, 2-0 Monocryl, and subcuticular 3-0 Stratafix augmented with Dermabond. An Aquacel dressing was applied. The patient was transferred to the recovery room in satisfactory condition, having tolerated the procedure well.
== END 2025-08-29 10:34 | disposition home or self-care (01) ==
LOC: SDC 05:52 → MED SURG 11:51 → SDC 08-29 10:34
PROVIDERS: ATTEND Orthopaedic Surgery
DX: M17.11 Unilateral primary osteoarthritis, right knee (principal); M25.561 Pain in right knee; E11.9 Type 2 diabetes mellitus without complications